=== PATIENT | female | born 1995 | race Caucasian/White ===

== ENCOUNTER 2024-08-08 10:00 | Outpatient (RCR) | payer OTHER, SELFPAY ==
[2024-08-08 11:44] LABS: Hematocrit 31.2 % (37.0-47.0); Hemoglobin 10.6 g/dL (12.0-15.0)
[2024-08-08 11:57] LABS: Glucose 1 Hour PP 50gm Dose 136 mg/dL
[2024-08-08 12:04] LABS: Transferrin 345 mg/dL (206-381)
[2024-08-08 12:35] LABS: HIV 1/2 Ab P24 Ag Result Negative (Negative); Iron 57 ug/dL (37-170)
[2024-08-08 12:44] LABS: Percent Iron Saturation 13 % (20-50)
[2024-08-08 13:09] LABS: Ferritin 7.12 ng/mL (6.24-137)
[2024-08-11] MEDS: RHO(D) IMMUNE GLOBULIN 300 MCG/2 ML SYRINGE IM (18:30)
== END 2024-11-06 23:59 | disposition home or self-care (01) ==
LOC: ANHLAB 10:00
PROVIDERS: PCP Internal Medicine; Visit Provider Obstetrics & Gynecology
DX: O36.0130 Maternal care for anti-D [Rh] antibodies, third trimester, not applicable or unspecified (principal); Z36.89 Encounter for other specified antenatal screening
CPT/HCPCS: 36415; 82728; 82947; 83540; 83550; 84466; 85014; 85018; 85461; 86703; 86850; 86900; 86901; 90384; 96372; G0432; J2790

== ENCOUNTER 2024-09-03 11:16 | Observation (INO) | payer OTHER, SELFPAY ==
[2024-09-03] VITALS (9 sets, daily range): BP systolic 110–123; BP diastolic 60–72; PULSE 76–100; BMI 31.4
--- OUTSIDE RECORDS SUMMARY | 2024-09-03 11:22 | XMS_ITS | Data Portability ---
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 Discussed plan. Not available 09/01/2024 17:07:52 Plan of Treatment Reminders Order Date Submit Date Provider Last Modified By Organization Details Last Modified Time Details Appointments OB ROUTINE 2024 02:45P M SONIA JOLLY MD Not available Not available Not available U/S OB GROWTH 2024 02:30P M ULTRASOUND Not available Not available Not available OB ROUTINE 2024 03:00P M January Lees CNM Not available Not available Not available Lab Rh immune globuli n screeni ng - Fax results to [phone] 2024 025 [facility] (Lab), [address] [place] [address], [phone], 08/15/2024 16:23:29 type + screen, serum - Fax results to 2024 025 [facility] (Lab), [address] [place] [address], [phone], 08/15/2024 16:25:36 HIV (1+2) Ab screen, serum - Fax results to 2024 025 [facility] (Lab), [address] [place] [address], [phone], 08/04/2024 15:41:34 hemoglo bin + hematoc rit, blood - Fax results to [facility]-[phone] 025 [facility] (Lab), [address] [place] [address], [phone], 08/04/2024 15:41:34 glucose toleran ce test, gestati onal, 1-hour - Fax results to [facility]-[phone] 025 [facility] (Lab), [address] [place] [address], [phone], 08/04/2024 15:41:34 iron + TIBC + ferriti n, serum [address] [facility] (Lab), [address] [facility], [place], [address], 08/19/2024 05:42:07 Referral None recorde d. Procedures None recorde d. Surgeries None recorde d. Imaging US, [facility] ic, follow- up 2024 [address], [address], [place], [address], 09/01/2024 20:56:22 US, [facility] ic, follow- up [address], [address], [place], [address], 08/05/2024 21:15:35 Medication Orders None recorde d. Patient TargetsNo targets recorded. Patient InstructionsNo instructions recorded. Reason for Referral None Reported. Results Created Date Observation Date Name Description Value Unit Range Abnormal Flag Note LastModifiedBy Organization Detail LastModifiedTime 08/19/19 25 08/18/2024 GTT - GESTA DIVINA L, 3 HOUR, ACOG glucose, fasting acog 64 mg/dL 70-94 low Not Available [facility] (Lab) [address] [facility], [place], [address], 08/19/2024 04:40:02 08/19/19 25 08/18/2024 GTT - GESTA DIVINA L, 3 HOUR, ACOG glucose, 1 hour acog 119 mg/dL 70-179 Not Available [facility] (Lab) [address] [facility], [place], [address], 08/19/2024 04:40:02 08/19/19 25 08/18/2024 GTT - GESTA DIVINA L, 3 HOUR, ACOG glucose, 2 hour acog 115 mg/dL 70-154 Not Available [facility] (Lab) [address] [place], [address], 08/19/2024 04:40:02 08/19/19 25 08/18/2024 GTT - GESTA DIVINA L, 3 HOUR, ACOG glucose, 3 hour acog 94 mg/dL 70-139 Not Available [facility] (Lab) [address] [place], [address], 08/19/2024 04:40:02 08/19/19 25 08/18/2024 DIMAS TIN / IRON / TRANS DIMAS N / TIBC iron 49 ug/dL 40-170 Not Available [facility] (Lab) [address] [place], [address], 08/19/2024 05:42:07 08/19/19 25 08/18/2024 DIMAS TIN / IRON / TRANS DIMAS N / TIBC transferrin 373 mg/dL 200-36 0 high Not Available [facility] (Lab) [address] [place], [address], 08/19/2024 05:42:07 08/19/19 25 08/18/2024 DIMAS TIN / IRON / TRANS DIMAS N / TIBC ferritin 9.9 NG/mL 8.0-25 2.0 Not Available [facility] (Lab) [address] [facility], [place], [address], 08/19/2024 05:42:07 08/19/19 25 08/18/2024 DIMAS TIN / IRON / TRANS DIMAS N / TIBC TIBC 522 ug/dL 250-45 0 high Not Available [facility] (Lab) [address] [facility], [place], [address], 08/19/2024 05:42:07 08/19/19 25 08/18/2024 DIMAS TIN / IRON / TRANS DIMAS N / TIBC iron saturation 9 % 20-55 low Not Available [facility] (Lab) [address] [place], [address], 08/19/2024 05:42:07 08/05/19 25 08/04/2024 US, obste tric, follo w-up No observ ation record ed. MARGA Tanja [address], [place], [address], 08/04/2024 20:59:31 08/05/19 25 08/04/2024 US, obste tric, follo w-up No observ ation record ed. [facility] [address], [place], [address], 08/04/2024 17:37:03 09/02/19 25 09/01/2024 US, obste tric, follo w-up No observ ation record ed. [facility] [address], [place], [address], 09/01/2024 17:51:14 09/02/19 25 09/01/2024 US, obste tric, follo w-up No observ ation record ed. [email or web address] Tan[address], [place], [address], 09/01/2024 21:28:20 Result Notes None recorded. Problems Name Problem SNOMED Code Status Onset Date Resolution Date Notes Provider Name and Address Organization Details Recorded Time 29157472 Active 2023 Thelma Segovia [facility], [facility] 4 16:16:40 Placenta circumval jai 2676601 Active growth SONIA JOLLY MD [address], [place], [address], [facility] 18:25:37 Marginal insertion of umbilical cord 91690585 Active q4 week growth SONIA JOLLY MD [address], [place], [address], [facility] 18:26:13 Blood group O Rh(D) negative 177287786 Active 08/08/2024 rhogam receicved Elvie Euceda [facility], [facility] 16:24:42 Problem Notes None recorded. Procedures Surgical History Date Name Laterality Status Provider Name and Address Organization Details Recorded Time 01/04/2023 Date of Last Pap Smear completed Thelma Segovia [facility] 04/11/2024 16:54:25 Imaging Results Imaging Date Name Status LastModified by Organiz ation Details LastModified Time 08/04/2024 US, obstetric, follow-up completed MARGA Mcgregore [address], [place], [address], 08/04/2024 20:59:31 08/04/2024 US, obstetric, follow-up completed perryelsa [place] [address], [place], [address], 08/04/2024 17:37:03 09/01/2024 US, obstetric, follow-up completed [facility] [address], [place], [address], 09/01/2024 17:51:14 09/01/2024 US, obstetric, follow-up active [email or web address] [address], [place], [address], 09/01/2024 21:28:20 Procedure Notes None recorded. Medical Equipment None Reported. Allergies No known drug allergies Medications Name Sig Start Date Stop Date Status Note LastModified by Organization Details LastModified Time rizatriptan 10 mg tablet 01/04 completed Not Available Not Available Not Available sumatriptan 50 mg tablet TAKE 1 TABLET BY MOUTH EVERY DAY NEEDED active Not Available Not Available No t Available ondansetron 8 mg disintegrat ing tablet DISSOLVE 1 TABLET ON THE TONGUE EVERY 6 TO 8 HOURS NEEDED active Not Available Not Available No t Available erythromyci n 5 mg/gram (0.5 %) eye ointment 01/04 completed Not Available Not Available Not Available methylpredn isolone 4 mg tablets in a dose pack 01/04 completed Not Available Not Available Not Available [facility] ODT 75 mg disintegrat ing tablet active Not Available Not Available N ot Available Vitals Date Recorded Body height Body mass index (BMI) Body weight Systolic blood pressure Diastolic blood pressure Provider Name and Address Organization Details Last Updated DateTime 08/04/2024 170.18 cm 32.1 kg/m2 03550.44 g 131 mm[Hg] 81 mm[Hg] KELLE Carey [facility] 5 15:28:41 Date Recorded Body height Body mass index (BMI) Body weight Systolic blood pressure Diastolic blood pressure Provider Name and Address Organization Details Last Updated DateTime 08/18/2024 170.18 cm 32.1 kg/m2 86108.44 g 109 mm[Hg] 77 mm[Hg] Thelma Segovia [facility] 5 11:07:55 Date Recorded Body weight Body mass index (BMI) Body height Systolic blood pressure Diastolic blood pressure Provider Name and Address Organization Details Last Updated DateTime 09/01/2024 45200.39 77 g 32.9 kg/m2 170.18 cm 120 mm[Hg] 76 mm[Hg] Elvie Euceda [facility] 16:56:02 Social History Question Answer Notes LastModified by Organizat ion Details LastModified Time Tobacco Smoking Status Never Smoker Roslyn Alen [facility] 01/04/2023 15:19:09 Do You Have An Advance Directive? No [email or web address] Information not available 04/11/2024 What Is Your Level Of Alcohol Consumption? Moderate [email or web address] Information not available 04/11/2024 How Many Years Have You Consumed Alcohol? 6 [email or web address] Information not available 04/11/2024 Are You Blind Or Do You Have Difficulty Seeing? No Information not available 01/04/2023 What Is Your Level Of Caffeine Consumption? None [email or web address] Information not available 04/11/2024 How Much Tobacco Do You Chew? None [email or web address] Information not available 04/11/2024 In The 14 Days Before Symptom Onset, Have You Had Close Contact With A Laboratory-confir med COVID-19 While That Case Was Ill? No Information not available 04/11/2024 In The 14 Days Before Symptom Onset, Have You Had Close Contact With A Person Who Is Under Investigation For COVID-19 While That Person Was Ill? No Information not available 04/11/2024 Have You Been To An Area Known To Be High Risk For COVID-19? No [email or web address] Information not available 04/11/2024 Are You Deaf Or Do You Have Serious Difficulty Hearing? No Information not available 01/04/2023 What Type Of Diet Are You Following? REGULAR [email or web address] Information not available 04/11/2024 What Is The Highest Grade Or Level Of School You Have Completed Or The Highest Degree You Have Received? [id number] [email or web address] Information not available 04/11/2024 What Is Your Occupation? [employer] [email or web address] Information not available 04/11/2024 Are There Any Guns Present In Your Home? Yes [email or web address] Information not available 04/11/2024 Do You Use Protection During Sex? No [email or web address] Information not available 04/11/2024 Do You Use Your Seat Belt Or Car Seat Routinely? Yes [email or web address] Information not available 04/11/2024 Do You Have Smoke And Carbon Monoxide Detectors In Your Home? Yes [email or web address] Information not available 04/11/2024 How Much Tobacco Do You Smoke? No [email or web address] Information not available 04/11/2024 Do You Feel Stressed (tense, Restless, Nervous, Or Anxious, Or Unable To Sleep At Night)? [id number] Information not available 04/11/2024 Do You Use Any Illicit Or Recreational Drugs? Yes [email or web address] Information not available 04/11/2024 Do You Use Sunscreen Routinely? No [email or web address] Information not available 04/11/2024 Have You Used IV Drugs? No [email or web address] Information not available 04/11/2024 Sex: Unknown Functional Status Question Answer Note LastModified by Organizat ion Details LastModified Time Do you have difficulty walking or climbing stairs? No Information not available 01/04/2023 Are you able to walk? [email or web address] Information not available 01/04/2023 Are you able to care for yourself? Yes Information not available 01/04/2023 Do you have difficulty dressing or bathing? No Information not available 01/04/2023 What is your exercise level? None [email or web address] Information not available 04/11/2024 Mental Status None recorded. Family History Relationship Description Onset Age of this Age Resolved Age Notes LastModified by Organization Details LastModified Time Maternal Grandmother Heart disease [email or web address] Not available 2023 16:49:56 Maternal Grandmother Essential hypertension [email or web address] Not available 0 09/01/2024 15:51:29 Mother Essential hypertension [email or web address] Not available 0 09/01/2024 15:51:29 Father Essential hypertension [email or web address] Not available 0 09/01/2024 15:51:29 Father Heart disease 50 [email or web address] Not available 04/0 08/2024 15:51:29 Father Heart disease [email or web address] Not available 2023 16:15:56 Maternal Grandfather Essential hypertension [email or web address] Not available 0 09/01/2024 15:51:29 Maternal Uncle Essential hypertension [email or web address] Not available 0 09/01/2024 15:51:29 Paternal Grandmother Heart disease 60 [email or web address] Not available 08/2024 15:51:30 Paternal Grandmother Heart disease [email or web address] Not available 2023 16:15:56 Paternal Grandfather Heart disease 70 [email or web address] Not available 08/2024 15:51:30 Paternal Grandfather Heart disease [email or web address] Not available 2023 16:15:56 Medical History Condition Response Allergies (Food, seasonal, environmental ) N Other N Breast Cancer N Drug/Latex Allergies/Reactions N Blood Transfusion N Dermatologic Disorders N Lung Disease N Defects or Inherited Disease N Breast Problem N Gestational Diabetes N Hematologic disorders N Anesthesia Complications N History of STI N Deep Vein Thrombosis N Polycystic ovary syndrome N Anxiety Disorder N Autoimmune disease N Arthritis N Infertility N Polyps N Acid Reflux (GERD) N History of abnormal pap N Cancer N Stroke N Varicosities N Neurologic/Epilepsy N Endometriosis N High Cholesterol N Headaches Y Fibromyalgia N Kidney Disease N Heart Problems N Kidney or Bladder Problems N Thyroid Problems N GI Problems N Eating Disorder N Anemia N Art (IVF or FET) N Psychiatric Illness N Ovarian Cancer N Diabetes N Pulmonary (TB, Asthma) N Hepatitis/Liver Disease N No Past Medical History N Eczema N Urinary Tract Infection N Abuse/Domestic Violence N Asthma N Trauma/Violence N Depression/ depression N Heart Disease N Pre-Eclampsia N Hypertension N Osteoporosis N Thrombophilias N Gynecological History Statement/Question Response Flow Moderate Date of LMP 02/02/2024 On BCP's at Conception? N N Was last menstrual period normal Y STIs/STDs N HPV Vaccine Y Duration of Flow (days) 5 Current Control Method Are cycles usually normal Y Frequency of Cycle (Q days) 28 Sexually Active? Y None Menses Monthly Y Age of first menstrual cycle 15 Date of Last Pap Smear 01/04/2023 Sexual Problems? N LMP Definite N Obstetrics History GPAL:G 1 P 0 0 0 0 Past Encounters Encounter ID Performer Location Encounter Start Date Encounter Closed Date Diagnosis/Indication Diagnosis SNOMED-CT Code Diagnosis ICD10 Code Diagnosis Note [id number] LUCILA Ordonez [place] [address] [address] 01/04/2023 14:48:42 01/05/2023 10:25:35 Gynecologic examination 13201382 Z01.419 Take Calcium with Vitamin D 1200mg daily if not receiving in daily diet. It is strongly advised to have an annual flu shot and up can obtain at most pharmacies . If you have not had a TDap shot in the last 10 years you should obtain one as well. Discussed with patient & provided with informatio n regarding Gardisil vaccine to prevent the 4 strains for HPV that cause cervical cancer if under age 26. Encourage safe sexual practices, to use condoms and limit partners if not already in a monogamous relationsh ip. Do monthly self breast exams. Have mammogram yearly or every other year depending on family history. BRCA testing is now available for patients with strong genetic history of female cancer. If interested contact the office. Engage in daily exercise of low impact aerobic exercise 45-60 minutes 4-5 times weekly. Avoid tobacco and illicit drugs as well as using moderation with alcohol intake less than 1-2 8 oz beverages daily. This lifestyle behavior pattern will lead to less health conditions and longer life span. If BMI greater than 25 weight watchers or dietary consult advised. Patient received above instructio ns, and questions have been answered. If you have any questions please call or respond to this email. Patient was made aware of the patient portal and may obtain a paper copy of today's plan if desired. WWEBC - condoms, happy with this methodBC declinedpr imary pap collectedS TI testing declinedfa m hx reviewedUT D with PCPRTC in 1 year or sooner if needed [id number] Tona Estrella [place] [address] [address] 04/11/2024 16:13:21 04/11/2024 16:41:40 Uterine size for dates discrepancy 694895167 O26.841 Z3A.09 [id number] SONIA JOLLY MD [place] [address] [address] 04/11/2024 16:13:39 04/13/2024 09:31:57 Nausea and vomiting 87926274 R11.2 Migraine 88318127 G43.90 9 - previously on Nurtec, stopped with - discussed tylenol PRN then sumatripta n if not improved test positive 826776506 Z32.01 1. Exam today within normal limits.2. Ultrasound today confirms GA and viability. EDC . GC/Clamydi a testing done: will f/u as indicated. 4. ACOG guidelines and plan of care for reviewed with patient. All questions answered.5 . Return to office at 12 weeks for new OB visit6. Will need new OB labs at next visit.7. 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 Marginal i nsertion of umbilical cord 93565791 O43.129 Gestation period, 21 weeks 58513098 Z3A.21 [id number] [facility] [address],[place] [address] 07/04/2024 16:25:20 07/04/2024 17:53:25 screening for malformation 242094115 Z36.3 Z3A.21 [id number] SONIA JOLLY MD [place] [address],[place] [address] 08/04/2024 15:20:25 08/04/2024 16:07:29 screening 177832875 Z36.89 O36.0130 Marginal i nsertion of umbilical cord 62552477 O43.129 - continue q week growth US Placenta circumvallata 1893867 O43.119 Gestation period, 26 weeks 39146132 Z3A.26 [id number] [facility] [address],[place] [address] 08/04/2024 15:20:05 08/07/2024 09:44:21 screening 429563360 Z36.2 Z3A.26 [id number] SONIA JOLLY MD [place] [address],[place] [address] 08/18/2024 09:34:11 08/18/2024 11:48:25 RhD negative 822403397 Z01.83 Impaired g lucose tolerance in 542849613 O99.810 Marginal i nsertion of umbilical cord 62231824 O43.129 - continue q week growth Gestation period, 28 weeks 02612699 Z3A.28 [id number] [facility] [address],[place] [address] 09/01/2024 15:50:59 09/01/2024 16:53:13 Marginal insertion of umbilical cord 14813038 O43.123 Z3A.30 [id number] January Lees CNM [place] [address],[place] [address] 09/01/2024 15:51:21 09/01/2024 17:09:51 Gestation period, 30 weeks 86991020 Z3A.30 Health Concerns Section Related Observation LastModified by Organization Detai ls LastModified Time None Recorded Concern Status LastModified by Organization Details LastModified Time None Recorded Advance Directives Directive N: Payers Encounter Date Sequence Insurance Name Policy Number Policy Rosas Covered Member ID Rosas Member ID Guarantor Name 08/04/2024 1 [facility] [id number] January Cook [id number] 1 January Cook 08/04/2024 1 [facility] [id number] January Cook [id number] 1 January Cook 08/18/2024 1 [facility] [id number] January Cook [id number] 1 January Cook 09/01/2024 1 [facility] [id number] January Cook [id number] 1 January Cook 09/01/2024 1 [facility] [id number] January Cook [id number] 1 January Cook OBGyn Episode Ob Episode Information Episode Created Date Number of Fetuses Patient Bloodtype Patient rh Status Prepregnancy Weight lbs Domestic Partner Domestic Partner Phone Father Name Elevator Attendant Status 05/09/20 24 1 O Negative Jake Carter OPEN Fetus Data First Name Last Name Admitted to NICU Weight (g) Sex Living Outcome Pediatric Complications Fetus ID Race Codes Race Delivery Type [id number] Problems Problem Notes Problem Name Start Date End Date Resolution Snomed Code Not e Placenta circumvallata 5166461 growth US Marginal insertion of umbilical cord 12006695 q4 week growt h US Blood group O Rh(D) negative 113101791 08/08/2024 rhoga m receicved Joesph Calculation Initial Joesph Date Initial Exam Date Initial Exam Provider Initial Ultrasound Date Last Menstrual Period Date Ultra Sound Weeks Gestation 05/09/2024 04/11/2024 02/02/2024 9 Eighteen To Twenty Week Joesph Update Ultra Sound Date Fundal Height At Umbil Quickening Date Ultra Sound Latest Weeks Gestation Final Joesph Confirmed By Final Joesph Confirmed Date Final Joesph Date Ultra Sound Latest Days Gestation 0 11/09/19 25 0 Pre-roxanne Flowsheet Flowsheet Date 05/09/2024 Dean Score Blood Edema Fundus Height Fundus Units Glucose Ketones Leukocytes Nitrite Labor Signs Protein Cervic Dilation Cervic Effacement Cervic Station Type Weight in lbs Pre/Post Dialysis Refused BP Diastolic BP Location Tested BP Systolic BP Type Fetus Heart Rate Present Fetus Movement Comments Flowsheet Date 05/09/2024 Dean Score Blood Edema Fundus Height Fundus Units Glucose Ketones Leukocytes Nitrite Labor Signs Protein Cervic Dilation Cervic Effacement Cervic Station Type Weight in lbs Pre/Post Dialysis Refused Weight 199.345840183914 BP Diastolic BP Location Tested BP Systolic BP Type 75 L arm 117 sitting Fetus Heart Rate Present A 154 Fetus Movement Comments Patient presents to [facility] care. Headaches improved, did not tolerate sumatriptan well, would like to try other medication for PRN migraines. otherwise uncomplicated. No nausea or cramping. NT/NB wnl today, desires NIPT. Will draw today with new OB labs. RTC 4 weeks for routine care. Flowsheet Date 06/09/2024 Dean Score Blood Edema Fundus Height Fundus Units Glucose Ketones Leukocytes Nitrite Labor Signs Protein Cervic Dilation Cervic Effacement Cervic Station Type Weight in lbs Pre/Post Dialysis Refused 197.175311943179 BP Diastolic BP Location Tested BP Systolic BP Type 76 L arm 112 sitting Fetus Heart Rate Present A 150 Fetus Movement A Yes Comments Doing well, starting to feel movement. Had an episode of bloody stool and constipation, will start stool softener. Discussed anatomy US for next visit. LR female NIPT! All other OB labs wnl. RTC 2-4 weeks for anatomy US. Flowsheet Date 07/04/2024 Dean Score Blood Edema Fundus Height Fundus Units Glucose Ketones Leukocytes Nitrite Labor Signs Protein Cervic Dilation Cervic Effacement Cervic Station Type Weight in lbs Pre/Post Dialysis Refused BP Diastolic BP Location Tested BP Systolic BP Type Fetus Heart Rate Present Fetus Movement Comments Flowsheet Date 07/04/2024 Dean Score Blood Edema Fundus Height Fundus Units Glucose Ketones Leukocytes Nitrite Labor Signs Protein Cervic Dilation Cervic Effacement Cervic Station neg none Type Weight in lbs Pre/Post Dialysis Refused Weight 201.582496821529 BP Diastolic BP Location Tested BP Systolic BP Type 74 L arm 117 sitting Fetus Heart Rate Present A 149 Fetus Movement A Yes Comments Patient c/o slight nausea, l ight cramping. Good movement. No bleeding. Anatomy US today, incomplete; need spine, RA, and aortic arch. Discussed findings of circumvallate placenta and marginal cord insertion; repeat growth US q4 weeks. EFW 29%. RTC 4 weeks. Flowsheet Date 08/04/2024 Dean Score Blood Edema Fundus Height Fundus Units Glucose Ketones Leukocytes Nitrite Labor Signs Protein Cervic Dilation Cervic Effacement Cervic Station Type Weight in lbs Pre/Post Dialysis Refused BP Diastolic BP Location Tested BP Systolic BP Type Fetus Heart Rate Present Fetus Movement Comments Flowsheet Date 08/04/2024 Dean Score Blood Edema Fundus Height Fundus Units Glucose Ketones Leukocytes Nitrite Labor Signs Protein Cervic Dilation Cervic Effacement Cervic Station neg trace neg Type Weight in lbs Pre/Post Dialysis Refused Weight [id number] BP Diastolic BP Location Tested BP Systolic BP Type 81 L arm 131 sitting Fetus Heart Rate Present Fetus Movement A Yes Comments Good movement. No cram ping or bleeding. Had hypoglycemic event after exercising. No recurrent episodes. Orders given for GCT and labs today with Rhogam orders. Growth US to follow. RTC 2 weeks. Flowsheet Date 08/18/2024 Dean Score Blood Edema Fundus Height Fundus Units Glucose Ketones Leukocytes Nitrite Labor Signs Protein Cervic Dilation Cervic Effacement Cervic Station neg none Type Weight in lbs Pre/Post Dialysis Refused Weight 205.626868196430 BP Diastolic BP Location Tested BP Systolic BP Type 77 L arm 109 sitting Fetus Heart Rate Present A 140 Fetus Movement A Yes Comments Good movement. No cram ping or bleeding. 3h GTT today. Discussed anemia, has started Fe supplement. Received rhogam. EFW 33% at last check, will repeat next visit for MCI and fibroid. RTC 2 weeks. Discussed tdap. Flowsheet Date 09/01/2024 Dean Score Blood Edema Fundus Height Fundus Units Glucose Ketones Leukocytes Nitrite Labor Signs Protein Cervic Dilation Cervic Effacement Cervic Station Type Weight in lbs Pre/Post Dialysis Refused BP Diastolic BP Location Tested BP Systolic BP Type Fetus Heart Rate Present Fetus Movement Comments Flowsheet Date 09/01/2024 Dean Score Blood Edema Fundus Height Fundus Units Glucose Ketones Leukocytes Nitrite Labor Signs Protein Cervic Dilation Cervic Effacement Cervic Station neg none Type Weight in lbs Pre/Post Dialysis Refused 210.280033882680 BP Diastolic BP Location Tested BP Systolic BP Type 76 120 Fetus Heart Rate Present Fetus Movement A Yes Comments Patient states that is havin g some nausea and vomiting. Reviewed precautions and education, +FM, has a cold, tylenol cold ok, efw 58% Menstrual History Last Menstrual Date Menses Monthly On Bcp Conception Prior Menses Frequency Hcg Plus Date Menarche Onset Age 0902/02/2024 true Delivery Information Delivery Date Delivery Type Labor Anesthesia Weeks Gestation Incision Type Labor Labor Length Hrs Delivered By Post Complications Tubal Sterilization Discharge Date Comments Discharge Information Feeding Method Contraceptive Method Maternal HG B and HCT Levels
--- OUTSIDE RECORDS SUMMARY | 2024-09-03 11:22 | XMS_ITS | Encounter Summary ---
Author Organization [facility] Address [address] [place] [id number] Care Team Providers Care Numerical Analysis Group Manager Name Role Phone Reji Castañeda MD Primary Care Provider [phone] Encounter Details Date Type Department Care Team (Late st Contact Info) Description 03/06/2022 Accountablet Message Enc [facility] Medical [facility] Family & Internal Medicine [id number] [place] [address] Reji Castañeda MD [facility] [place] [address] CBD migraine Treatment Social History Tobacco Use Types Packs/Day Years Used Date Smoking Tobacco: Never Smokeless Tobacco: Never Alcohol Use Standard Drinks/Week Comments Yes 0 (1 standard drink = 0.6 oz pur e alcohol) 2 drinks every few days AUDIT-C Answer Date Recorded Frequency of Alcohol Consumption Monthly or less 02/20/2019 Average Number of Drinks 1 or 2 019 Frequency of Binge Drinking Never 01/30 PHQ-2 Answer Date Recorded PHQ-2 Score - If the patient scores above 3, please move on to questions 3-9 0 12/22/2021 Comments No Sex and Gender Information Value Date Recorded Sex Assigned at Female 02/20/2019 3:48 PM CDT Legal Sex Female 7:07 PM CDT Gender Identity Female 02/20/2019 3:48 PM CDT Sexual Orientation Straight 02/20/2019 3: 48 PM CDT documented as of this encounter Plan of Treatment Not on file documented as of this encounter Visit Diagnoses Not on filedocumented in this encounter Additional Health Concerns Assessment Noted Time PHQ-9 Depression Total Score: 0 02/14/20 21 10:08 AM CDT documented as of this encounter Care Teams Numerical Analysis Group Manager Relationship Specialty Start Date End Date Reji Castañeda MD [address] [place] [address] PCP - General 10/31/15 documented as of this encounter
--- OUTSIDE RECORDS SUMMARY | 2024-09-03 11:22 | XMS_ITS | Encounter Summary ---
Author Organization [facility] Address [address] [place] [address] Care Team Providers Care Road Design Draftsperson Name Role Phone Reji Castañeda MD Primary Care Provider [phone] Encounter Details Date Type Department Care Team (Late st Contact Info) Description 04/19/2023 [place] Message Enc [facility] Medical Group Family & Internal Medicine [facility] [address] [place] [address] Reji Castañeda MD [address] [place] [address] [facility] Social History Tobacco Use Types Packs/Day Years [...] Drinking Never 01/30 PHQ-2 Answer Date Recorded Patient Health Questionnaire-2 Score 0 08/11/2022 Comments No Sex and Gender Information Value Date Recorded Sex Assigned at Female 02/20/2019 3:48 PM CDT Legal Sex Female 7:07 PM CDT Gender Identity Female 02/20/2019 3:48 PM CDT Sexual Orientation Straight 02/20/2019 3: 48 PM CDT documented as of this encounter Progress Notes * Reji Castañeda MD - 04/20/2023 5:05 PM CST Okay for refill of imitrex [place] documented in this encounter Plan of Treatment Not on file documented as of this encounter Visit Diagnoses Not on filedocumented in this encounter Additional Health Concerns Assessment Noted Time PHQ-9 Depression Total Score: 0 02/14/20 10:08 AM CDT documented as of this encounter Care Teams Road Design Draftsperson Relationship Specialty Start Date End Date Reji Castañeda MD [address] [place] [address] PCP - General 10/31/15 documented as of this encounter
--- OUTSIDE RECORDS SUMMARY | 2024-09-03 11:22 | XMS_ITS | Clinical Summary ---
Author Organization [facility] Address [address] [facility] [place] [address] Care Team Providers Care Certified Control Systems Technician Name Role Phone Unavailable Primary Care Provider Unavailabl e Source Comments [facility],non-owned Affiliates and Associated Physician Practices is amultiple site organization consisting of ambulatory clinics and hospital sitesin [place], [place], [place] and [place]. This disclosure is being madepursuant to the Care Everywhere program and may not contain all information available regarding this patient. Last updated 18.[facility] [employer] Allergies No known active allergies Medications * Be aware that medications may not be up to date on this document. Alwaysverify current medications with the patient. Medication Sig Dispensed Refills Start Date End Date Status minocycline (MINOCIN) 100 MG capsuleIndications:Acne Take 1 Cap by mouth 2 times daily for 30 days. 60 Cap 1 01/01/2011 Active Active Problems Problem Noted Date Diagnosed Date Acne 06/04/2011 Immunizations Name Administration Dates Next Due DTaP VACCINE IM (6wk-6yrs) 09/26/2001,,1996, 7,1996 HEP A PEDS 2 DOSE 10/20/2005,09/30/2004 HEP B VACCINE, PED/ADOL 03/30/1997,1996, HIB BOOSTER 09/14/1997, 7,1996, 7 Human Papilloma Virus Vaccine 01/02/2008, 008,07/01/2007 MENINGOCOCAL MENINGITIS 07/01/2007 MENINGOCOCCAL ACWY (MCV4P) VAC IM 09/23/2012 MMR 09/26/2001,07/13/1997 POLIO IPV 09/26/2001 POLIO OPV 1996,1996,1996 PPD 09/26/2001 TDAP (7yrs+) 10/26/2006 VARICELLA 10/26/2006,09/14/1997 Family History Relation Name Status Comments Father Alive Mother Alive Social History Tobacco Use Types Packs/Day Years Used Date Smoking Tobacco: Never Smokeless Tobacco: Never Sex and Gender Information Value Date Recorded Sex Assigned at Not on file Gender Identity Not on file Sexual Orientation Not on file Last Filed Vital Signs Vital Sign Reading Time Taken Comments Blood Pressure 118/68 07/04/2019 6:33 PM CAMERA CONTROL OPERATOR Pulse 85 07/04/2019 6:33 PM CAMERA CONTROL OPERATOR Temperature 36.8 C (98.2 F) 07/04/2019 6:33 PM CAMERA CONTROL OPERATOR Respiratory Rate 14 07/04/2019 6:33 PM CAMERA CONTROL OPERATOR Oxygen Saturation 98% 07/04/2019 6:33 PM CAMERA CONTROL OPERATOR Inhaled Oxygen Concentration - - Weight 81.6 kg (180 lb) 07/04/2019 6:33 PM CAMERA CONTROL OPERATOR Height 170.2 cm (5' 7 ) 07/04/2019 6:33 PM CAMERA CONTROL OPERATOR Body Mass Index 28.19 07/04/2019 6:33 PM CAMERA CONTROL OPERATOR Plan of Treatment Health Maintenance Due Date Last Done Comments PAP SMEAR 1996 HIV SCREENING 2011 HEPATITIS C SCREENING 06/02/2014 DTAP/TDAP/TD VACCINES (7 - Td or Tdap) 10/26/2016 10/26/2006, 09/26/2001, 09/14/1997, Additional history exists COVID-19 VACCINE ( season) 2024 DEPRESSION SCREENING 05/31/2024 INFLUENZA VACCINE (Season Ended) 2025 03/12/2016 ZOSTER VACCINE (1 of 2) 2046 HEPATITIS B VACCINE Completed 03/30/1997, 1996, 1996 HIB VACCINE Completed 09/14/1997, 01/1997, 1996, Additional history exists HPV VACCINE Completed 01/02/2008, 08/2007, 07/01/2007 MENINGOCOCCAL GROUPS A/C/Y/W VACCINE Completed 09/23/2012, 07/01/2007 MENINGOCOCCAL (Group B) VACCINE SHARED DECISION-MAKING Aged Out No longer eligible based on patient's age to complete this topic PNEUMOCOCCAL VACCINE Aged Out No long er eligible based on patient's age to complete this topic JANUARY COOK Personal/Family 1995 [address] [place] [address]
--- OUTSIDE RECORDS SUMMARY | 2024-09-03 11:22 | XMS_ITS | Clinical Summary ---
Author Organization [facility] Address [address] [place] [address] Care Team Providers Care Communications Department Chairperson Name Role Phone Reji Castañeda MD Primary Care Provider [phone] Allergies No known active allergies Medications metroNIDAZOLE (METROGEL) 1 % gelIndications:Ros acea Apply topically daily. 55 g 3 3 Active SUMAtriptan (IMITREX) 50 MG tabletIndications: Migraine with aura and without status migrainosus, not intractable Take 1 tablet (50 mg total) by mouth 2 (two) times daily as needed for Migraine. Max of 4 tablets (200 mg) in 24 hours. 10 tablet 1 4 Active rimegepant (NURTEC) 75 MG disintegrating tabletIndications: Migraine without aura and without status migrainosus, not intractable Take 1 tablet (75 mg total) by mouth daily as needed for Migraine. Max of 1 tablet (75 mg) in 24 hours. 30 tablet 3 4 Active Active Problems Problem Noted Date Diagnosed Date Migraine 07/27/2019 Arachnoid cyst 03/31/2016 Mass of left side of neck 03/12/2016 Low hemoglobin 10/31/2015 Encounters Date Type Department Care Team Description 08/08/2024 Scan [facility] Scanned, [facility] Lab (SCAN) from Last 3 Months Immunizations Name Administration Dates Next Due Dtap (Generic) 09/26/2001, 8,1996,1996 ,1996 HPV 01/02/2008,09/02/2007,07/01/2007 Hepatitis A Vaccine - 2 Dose 10/20/2005,10/01/19 05 Hepatitis B Pediatric 03/30/1997,1996,06/01 Hib Vaccine, Prp-D 09/14/1997,1996, 997,1996 Influenza Adult (Generic) 03/12/2016 MMR (Generic) 09/26/2001,07/13/1997 Menactra 09/23/2012 Meningococcal Vac A,C,Y,W-135 Sc 09/23/2012 Meningococcal(Mcv 4)Aka Menactra 07/01/2007 Opv 1996,1996,1996 Polio Ipv (Generic) 09/26/2001 Tdap (Adacel) 02/13/2021 Tdap (Generic) 10/26/2006 Varicella Vaccine 10/26/2006,09/14/1997 Family History Medical History Relation Comments Hypertension Father Lung Disease Maternal Grandfather Cancer Maternal Grandmother skin cancer Hypertension Mother Cancer Paternal Grandmother Heart Disease Paternal Grandmother Relation Status Comments Father Maternal Grandfather Maternal Grandmother Mother Paternal Grandmother Social History Tobacco Use Types Packs/Day Years Used Date Smoking Tobacco: Never Smokeless Tobacco: Never Tobacco Cessation:Counseling Given: Not Answered Alcohol Use Standard Drinks/Week Comments Yes 0 [...] Orientation Straight 02/20/2019 3: 48 PM CDT Last Filed Vital Signs Vital Sign Reading Time Taken Comments Blood Pressure 118/72 08/11/2022 3:35 PM CDT Pulse 87 08/11/2022 3:35 PM CDT Temperature 36.4 C (97.5 F) 08/11/2022 3:35 PM CDT Respiratory Rate 16 08/11/2022 3:35 PM CDT Oxygen Saturation 99% 08/11/2022 3:35 PM CDT Inhaled Oxygen Concentration - - Weight 88.7 kg (195 lb 9.6 oz) 08/11/2022 3:35 P M CDT Height 171.5 cm (5' 7.5 ) 08/11/2022 3:35 PM CDT Body Mass Index 30.18 08/11/2022 3:35 PM CDT Plan of Treatment Health Maintenance Due Date Last Done Comments Hepatitis C 2014 Annual Physical 08/12/2023 08/11/2022, 02/13/2021 COVID-19 Vaccine ( season) 2024 08/09/2020, 07/19/2020 PHQ-2 (Physician [place]) 05/31/2024 Cervical Cancer Screening Pap Smear (Age 21 to 29) Every 3 Years 01/04/2026 01/04/2023 Cervical Cancer Screening 01/04/2026 DTaP, Tdap and Td Vaccines (8 - Td or Tdap) 02/13/2031 02/13/2021, 10/26/2006, 09/26/2001, Additional history exists Hepatitis B Vaccines Completed 03/30/1997, 1996, 1996 HPV Vaccines Completed 01/02/2008, 08/2007, 07/01/2007 Meningococcal Vaccine Aged Out 09/23/2012, 013 No longer eligible based on patient's age to complete this topic Meningococcal B Vaccine Aged Out No l onger eligible based on patient's age to complete this topic Pneumococcal Vaccine: Pediatrics (0 to 5 Years) and At-Risk Patients (6 to 64 Years) Aged Out No longer eligible based on patient's age to complete this topic RSV Immunizations Under 20 Months Aged Out No longer eligible based on patient's age to complete this topic Procedures Procedure Name Priority Date/Time Associated Diagnosis Comments OUTSIDE LAB (SCAN ORDER) 08/08/2024 OUTSIDE LAB (SCAN ORDER) 08/08/2024 OUTSIDE CYTOPATH CERV/VAG IN TERPRET (PAP) 01/04/2023 from Last 3 Months or Most Recently Relevant to Health Maintenance Results * OUTSIDE LAB (SCAN ORDER) (08/08/2024) Only the most recent of2 resultswithin the time period is included. 08/08/2024 [facility] Scanned SCANNING Final Resu lt * PAP SMEAR WITH HPV (01/04/2023) 01/04/2023 [facility] Scanned SCANNING Final Resu lt from Last 3 Months or Most Recently Relevant to Health Maintenance Insurance CIG Care Teams Communications Department Chairperson Relationship Specialty Start Date End Date Reji Castañeda MD [address] [place] [address] PCP - General 10/31/15
[2024-09-03 12:31] LABS: Add Urine Microscopic? YES; Appearance Urine Clear (Clear); Bacteria Urine None Seen /hpf; Bilirubin Urine Negative (Negative); Blood Urine Negative (Negative); Color Urine Yellow (Yellow); Glucose Urine UA Trace mg/dL (Negative); Ketones Urine Negative (Negative); Leukocyte Esterase Ur Trace LEU/UL (Negative); Nitrate Urine Negative (Negative); Non Pathogenic Casts 0-2; Protein Urine Negative (Negative); RBC Urine 0-2 /hpf (0-2); Specific Grav Ur 1.004 (1.001-1.035); Squamous Epithelial Cell Urine None Seen /hpf (Few); Urobilinogen Urine 0.2 mg/dL (<2.0); WBC Urine 0-5 /hpf (0-3)
[2024-09-03] MEDS: TERBUTALINE SULFATE 1 MG/ML VIAL 0.25 MG SUB-Q (12:59)
--- NOTE | 2024-09-27 09:28 | PM.OBTRLD ---
OB - Triage/Final Diagnosis Visit Information Comments/Additional reasons for admission: I have assessed the risk for this patient, January Cook, and determined that she would benefit from observation care. Evaluation Laboratory results: Laboratory Tests 09/03/24 12:20 Urine Color Yellow Urine Appearance Clear Urine pH 7.0 Ur Specific [place] 1.004 Urine Protein Negative Urine Glucose (UA) Trace H Urine Ketones Negative Ur Blood (Man) Negative Urine Nitrate Negative Urine Bilirubin Negative Urine Urobilinogen 0.2 Ur Leukocyte Esterase Trace H Urine RBC 0-2 Urine WBC 0-5 Ur Squamous Epith Cells None seen Urine Bacteria None seen Urine Casts 0-2 Final Diagnosis (1) Abdominal pain: Code(s): R10.9 - Unspecified abdominal pain Status: Acute
== END 2024-09-03 13:42 | disposition home or self-care (01) ==
PROVIDERS: Obstetrics & Gynecology; Admitting Provider Obstetrics & Gynecology; PCP Internal Medicine; Visit Provider Obstetrics & Gynecology
DX: O26.893 Other specified pregnancy related conditions, third trimester (principal); R10.9 Unspecified abdominal pain; Z3A.30 30 weeks gestation of pregnancy
CPT/HCPCS: 81001; 87086; 96372; G0378; G0379; J3105

== ENCOUNTER 2024-10-27 15:25 | Inpatient (IN) | payer OTHER, SELFPAY ==
[2024-10-27] VITALS (13 sets, daily range): BP systolic 119–142; BP diastolic 51–95; PULSE 51–86; TEMP 36.7–36.9; O2SAT 87–99; BMI 34.5
--- OUTSIDE RECORDS SUMMARY | 2024-10-27 15:35 | XMS_ITS | Data Portability ---
Author Organization [facility] [place] Address [address] [place] [address] Care Team Providers Care Scientific Affairs Manager Name Role Phone BETZY WU Primary Care Provider Assessment Encounter Date Assessment Date Assessment LastModified by Organization Details LastModified Time 10/10/2024 10/10/2024 Patient is __35_weeks . Discussed plan. Not available 10/10/2024 11:32:54 10/17/2024 10/17/2024 Patient is __36_weeks . Discussed plan. [email or web address] Not available 10/17/2024 10:29:15 10/27/2024 10/27/2024 Patient is _38__weeks . Discussed plan. Not available 10/27/2024 16:19:58 Plan of Treatment Reminders Order Date Submit Date Provider Last Modified By Organization Details Last Modified Time Details Appointments U/S OB GROWTH 2024 02:30P M ULTRASOUND Not available Not available Not available OB ROUTINE 2024 03:00P M January Lees CNM Not available Not available Not available Lab None recorde d. Referral None recorde d. Procedures None recorde d. Surgeries None recorde d. Imaging None recorde d. Medication Orders None recorde d. Patient TargetsNo targets recorded. Patient InstructionsNo instructions recorded. Reason for Referral None Reported. Results Created Date Observation Date Name Description Value Unit Range Abnormal Flag Note LastModifiedBy Organization Detail LastModifiedTime 10/11/19 25 10/10/2024 CULTU RE: GROUP B STREP SCREE N, REFLE X SUSCE PTIBI LITY result report SEE RESULT S BELOW Test: Cultu re: Group B Strep , Refle x Susce ptibi lity ([facility]/ [facility] ) Speci men Sourc e: Vagin a/Rec hailee Speci men Type: Vagin al/Re ctal Speci men Date: 2024 1107 Resul t Date: 2024 1359 Resul t Statu s: Final resul t Abnor mal: No Resul ting Lab: [facility] [address] [facility] [address] Tel: CULTU RE ----- ----- ----- --- No Group B strep isola rachel at 2 days (josette ctive broth enhan cemen t) Not Available [facility] (Lab) [address] [facility], [place], [address], 10/13/2024 15:02:57 10/18/19 25 10/17/2024 CBC W/DIF F WBC 8.9 10'3/ uL 3.5-10 .5 Not Available [facility] (Lab) [address] [facility], [place], [address], 10/18/2024 07:12:38 10/18/19 25 10/17/2024 CBC W/DIF F RBC 3.32 10'6/ uL (based on docume nted legal sex) 3.80-5 .20 low Not Available [facility] (Lab) [address] [place], [address], 10/18/2024 07:12:38 10/18/19 25 10/17/2024 CBC W/DIF F HGB 9.4 g/dL (based on docume nted legal sex) 11.6-1 5.4 low Not Available [facility] (Lab) [address] [place], [address], 10/18/2024 07:12:38 10/18/19 25 10/17/2024 CBC W/DIF F HCT 29.9 % (based on docume nted legal sex) 34.0-4 5.0 low Not Available [facility] (Lab) [address] [facility], [place], [address], 10/18/2024 07:12:38 10/18/19 25 10/17/2024 CBC W/DIF F MCV 90.1 fL 80.0-9 9.0 Not Available [facility] (Lab) [address] [facility], [place], [address], 10/18/2024 07:12:38 10/18/19 25 10/17/2024 CBC W/DIF F MCH 28.3 pg 27.0-3 4.0 Not Available [facility] (Lab) [address] [facility], [place], [address], 10/18/2024 07:12:38 10/18/19 25 10/17/2024 CBC W/DIF F MCHC 31.4 g/dL 32.0-3 5.5 low Not Available [facility] (Lab) [address] [facility], [place], [address], 10/18/2024 07:12:38 10/18/19 25 10/17/2024 CBC W/DIF F RDW 14.4 % 11.0-1 5.0 Not Available [facility] (Lab) [address] [facility], [place], [address], 10/18/2024 07:12:38 10/18/19 25 10/17/2024 CBC W/DIF F plt 193 10'3/ uL 150-40 0 Not Available [facility] (Lab) [address] [facility], [place], [address], 10/18/2024 07:12:38 10/18/19 25 10/17/2024 CBC W/DIF F MPV 12.4 fL 8.8-12 .1 high Not Available [facility] (Lab) [address] [facility], [place], [address], 10/18/2024 07:12:38 10/18/19 10/17/2024 CBC W/DIF F NRBC's 0.0 % 0.0 Not Available [facility] (Lab) [address] [facility], [place], [address], 10/18/2024 07:12:38 10/18/19 25 10/17/2024 CBC W/DIF F absolute NRBCs 0.0 10'3/ uL no refere nce range establ ished Not Available [facility] (Lab) [address] [facility], [place], [address], 10/18/2024 07:12:38 10/18/19 25 10/17/2024 CBC W/DIF F neutrophils 66.4 % 34.0-7 3.0 Not Available [facility] (Lab) [address] [facility], [place], [address], 10/18/2024 07:12:38 10/18/19 25 10/17/2024 CBC W/DIF F lymphocytes 21.5 % 15.0-5 0.0 Not Available [facility] (Lab) [address] [facility], [place], [address], 10/18/2024 07:12:38 10/18/19 25 10/17/2024 CBC W/DIF F monocytes 10.9 % 1.0-15 .0 Not Available [facility] (Lab) [address] [place], [address], 10/18/2024 07:12:38 10/18/19 25 10/17/2024 CBC W/DIF F eosinophils 0.8 % 0.0-8. 0 Not Available [facility] (Lab) [address] [place], [address], 10/18/2024 07:12:38 10/18/19 25 10/17/2024 CBC W/DIF F basophils 0.2 % 0.0-2. 0 Not Available [facility] (Lab) [address] [place], [address], 10/18/2024 07:12:38 10/18/19 25 10/17/2024 CBC W/DIF F immature granulocytes 0.2 % no define d refere nce range Immat ure Granu locyt es (IG) repre sents autom ated enume ratio n of Metam yeloc ytes, Myelo cytes and Promy elocy jack when IG is < 5%. Blast s are not inclu ded in IG and repor rachel separ ately if prese nt. Not Available [facility] (Lab) [address] [facility], [place], [address], 10/18/2024 07:12:38 10/18/19 25 10/17/2024 CBC W/DIF F absolute neutrophils 5.9 10'3/ uL 1.5-8. 0 Not Available [facility] (Lab) [address] [facility], [place], [address], 10/18/2024 07:12:38 10/18/19 25 10/17/2024 CBC W/DIF F absolute lymphocytes 1.9 10'3/ uL 1.0-4. 0 Not Available [facility] (Lab) [address] [facility], [place], [address], 10/18/2024 07:12:38 10/18/19 25 10/17/2024 CBC W/DIF F absolute monocytes 1.0 10'3/ uL 0.2-1. 0 Not Available [facility] (Lab) [address] [place], [address], 10/18/2024 07:12:38 10/18/19 25 10/17/2024 CBC W/DIF F absolute eosinophils 0.1 10'3/ uL 0.0-0. 6 Not Available [facility] (Lab) [address] [place], [address], 10/18/2024 07:12:38 10/18/19 25 10/17/2024 CBC W/DIF F absolute basophils 0.0 10'3/ uL 0.0-0. 3 Not Available [facility] (Lab) [address] [facility] [place], [address], 10/18/2024 07:12:38 10/18/19 25 10/17/2024 CBC W/DIF F absolute immature granulocytes 0.0 10'3/ uL 0.00-0 .10 Refer ence range s for nonbi nary/ inter sex or unspe cifie d gende r patie nts have not been estab lishe d. Pleas e refer [facility] for range s estab lishe d for cisge nder patie nts and evalu ate in the clini coco jodi xt of the indiv idual patie nt: https ://la and book. nm.or g/gen derx Not Available [facility] (Lab) [address] [facility], [place], [address], 10/18/2024 07:12:38 10/18/19 25 10/17/2024 URIC ACID uric acid 3.7 mg/dL 2.3-6. 6 Not Available [facility] (Lab) [address] [facility], [place], [address], 10/18/2024 07:12:39 10/18/19 25 10/17/2024 CMP(C OMPRE HENSI VE METAB OLIC PANEL ) sodium 136 mmol/ L 133-14 6 Not Available [facility] (Lab) [address] [place], [address], 10/18/2024 07:12:39 10/18/19 25 10/17/2024 CMP(C OMPRE HENSI VE METAB OLIC PANEL ) potassium 3.9 mmol/ L 3.5-5. 1 Not Available [facility] (Lab) [address] [place], [address], 10/18/2024 07:12:39 10/18/19 25 10/17/2024 CMP(C OMPRE HENSI VE METAB OLIC PANEL ) chloride 104 mmol/ L 98-107 Not Available [facility] (Lab) [address] [place], [address], 10/18/2024 07:12:39 10/18/19 25 10/17/2024 CMP(C OMPRE HENSI VE METAB OLIC PANEL ) carbon dioxide 24 mmol/ L 21-31 Not Available [facility] (Lab) [address] [facility], [place], [address], 10/18/2024 07:12:39 10/18/19 25 10/17/2024 CMP(C OMPRE HENSI VE METAB OLIC PANEL ) anion gap 8 mmol/ L 4-13 Not Available [facility] (Lab) [address] [facility], [place], [address], 10/18/2024 07:12:39 10/18/19 25 10/17/2024 CMP(C OMPRE HENSI VE METAB OLIC PANEL ) blood urea nitrogen 9 mg/dL 7-[address] [facility] (Lab) [address] [facility], [place], [address], 10/18/2024 07:12:39 10/18/19 25 10/17/2024 CMP(C OMPRE HENSI VE METAB OLIC PANEL ) creatinine 0.58 mg/dL 0.60-1 .30 low Not Available [facility] (Lab) [address] [facility], [place], [address], 10/18/2024 07:12:39 10/18/19 25 10/17/2024 CMP(C OMPRE HENSI VE METAB OLIC PANEL ) egfrcr (CKD-epi 2020) >90 mL/mi n/1.7 3_m2 >=60 Not Available [facility] (Lab) [address] [facility], [place], [address], 10/18/2024 07:12:39 10/18/19 25 10/17/2024 CMP(C OMPRE HENSI VE METAB OLIC PANEL ) calcium 8.2 mg/dL 8.3-10 .5 low Not Available [facility] (Lab) [address] [facility], [place], [address], 10/18/2024 07:12:39 10/18/19 25 10/17/2024 CMP(C OMPRE HENSI VE METAB OLIC PANEL ) glucose 62 mg/dL 70-100 low Not Available [facility] (Lab) [address] [facility], [place], [address], 10/18/2024 07:12:39 10/18/19 25 10/17/2024 CMP(C OMPRE HENSI VE METAB OLIC PANEL ) protein, total 5.8 g/dL 6.4-8. 3 low Not Available [facility] (Lab) [address] [facility], [place], [address], 10/18/2024 07:12:39 10/18/19 25 10/17/2024 CMP(C OMPRE HENSI VE METAB OLIC PANEL ) albumin 3.2 g/dL 3.5-5. 0 low Not Available [facility] (Lab) [address] [facility], [place], [address], 10/18/2024 07:12:39 10/18/19 25 10/17/2024 CMP(C OMPRE HENSI VE METAB OLIC PANEL ) ALT 10 units /L 9-43 Not Available [facility] (Lab) [address] [place], [address], 10/18/2024 07:12:39 10/18/19 25 10/17/2024 CMP(C OMPRE HENSI VE METAB OLIC PANEL ) alkaline phosphatase 76 units /L 34-104 Not Available [facility] (Lab) [address] [place], [address], 10/18/2024 07:12:39 10/18/19 25 10/17/2024 CMP(C OMPRE HENSI VE METAB OLIC PANEL ) AST 17 units /L 13-39 Not Available [facility] (Lab) [address] [place], [address], 10/18/2024 07:12:39 10/18/19 25 10/17/2024 CMP(C OMPRE HENSI VE METAB OLIC PANEL ) bilirubin, total 0.3 mg/dL 0.2-1. 2 Not Available [facility] (Lab) [address] [facility], [place], [address], 10/18/2024 07:12:39 10/18/19 25 10/17/2024 PROTE IN/CR EATIN INE RATIO , URINE creatinine, urine 83.1 mg/dL R-No refer ence range estab lishe d for this assay Not Available [facility] (Lab) [address] [facility], [place], [address], 10/18/2024 07:12:40 10/18/19 25 10/17/2024 PROTE IN/CR EATIN INE RATIO , URINE protein, urine 11 mg/dL R-No refer ence range estab lishe d for this assay Not Available [facility] (Lab) [address] [facility], [place], [address], 10/18/2024 07:12:40 10/18/19 25 10/17/2024 PROTE IN/CR EATIN INE RATIO , URINE protein/crea tinine ratio, urine 0.13 . No Refer ence Range avail able for Rando m Urine s. A prote in to creat inine ratio of >=0.1 9 is a good predi ctor of signi fican t prote inuri a. A level of <0.14 can rule out signi fican t prote inuri a. Not Available [facility] (Lab) [address] [facility], [place], [address], 10/18/2024 07:12:40 09/30/19 25 09/29/2024 US, obste tric, follo w-up No observ [facility]ion [facility] [address], [place], [address], 09/29/2024 17:26:10 09/30/19 25 09/29/2024 US, obste tric, follo w-up No observ ation record ed. [email or web address] [address], [place], [address], 10/04/2024 13:03:51 10/28/19 25 10/27/2024 imagi ng/di chetanos tic resul t No observ ation record ed. [email or web address] [address], [place], [address], 10/27/2024 16:20:45 Result Notes None recorded. Problems Name Problem SNOMED Code Status Onset Date Resolution Date Notes Provider Name and Address Organization Details Recorded Time 25557957 Active 2023 Thelma Segovia [facility] 16:16:40 Placenta circumval jai 3776999 Active growth SONIA JOLLY MD [address], [place], [address], [facility] 18:25:37 Marginal insertion of umbilical cord 58485480 Active q4 week growth SONIA JOLLY MD [address], [place], [address], [facility] 5 18:26:13 Blood group O Rh(D) negative 024669230 Active 08/08/2024 rhogam receicved Elvie Euceda [facility] 5 16:24:42 Problem Notes None recorded. Procedures Surgical History Date Name Laterality Status Provider Name and Address Organization Details Recorded Time 01/04/2023 Date of Last Pap Smear completed Thelma Segovia [facility] 04/11/2024 16:54:25 Imaging Results None recorded. Procedure Notes None recorded. Medical Equipment None Reported. Allergies No known drug allergies Medications Name Sig Start Date Stop Date Status Note LastModified by Organization Details LastModified Time cyclobenzap rine 10 mg tablet TAKE 1 TABLET BY MOUTH THREE TIMES DAILY 09/29 completed Not Available Not Available Not Available rizatriptan 10 mg tablet 01/04 completed Not Available Not Available Not Available sumatriptan 50 mg tablet Take 1 tablet every day by oral route as needed. 09/29 completed Not Available Not Available Not Available ondansetron 8 mg disintegrat ing tablet DISSOLVE 1 TABLET ON THE TONGUE EVERY 6 TO 8 HOURS NEEDED 10/10 completed Not Available Not Available Not Available erythromyci n 5 mg/gram (0.5 %) eye ointment 01/04 completed Not Available Not Available Not Available methylpredn isolone 4 mg tablets in a dose pack 01/04 completed Not Available Not Available Not Available [facility] ODT 75 mg disintegrat ing tablet 09/29 completed Not Available Not Available Not Available Vitals Date Recorded Body weight Body mass index (BMI) Body height Systolic blood pressure Diastolic blood pressure Provider Name and Address Organization Details Last Updated DateTime 10/10/2024 618819.9 1377 g 34.6 kg/m2 170.18 cm 124 mm[Hg] 74 mm[Hg] Elvie Euceda [facility] 5 10:23:37 Date Recorded Body height Body mass index (BMI) Body weight Systolic blood pressure Diastolic blood pressure Provider Name and Address Organization Details Last Updated DateTime 10/17/2024 170.18 cm 34.8 kg/m2 749190.5 1 g 130 mm[Hg] 82 mm[Hg] [facility] 09:57:44 Date Recorded Body weight Body mass index (BMI) Body height Systolic blood pressure Diastolic blood pressure Provider Name and Address Organization Details Last Updated DateTime 10/27/2024 788816.2 8325 g 35.2 kg/m2 170.18 cm 142 mm[Hg] 87 mm[Hg] [facility] 16:14:21 Social History Question Answer Notes LastModified by Organizat ion Details LastModified Time Tobacco Smoking Status Never Smoker Roslyn Lowry [facility] 01/04/2023 15:19:09 Do You Have An Advance Directive? No Information n ot available 04/11/2024 If You Are , What Was Your Level Of Alcohol Consumption Prior To ? Occasional [email or web address] Information not available 09/29/2024 How Many Years Have You Consumed Alcohol? 6 Information not available 04/11/2024 Are You Blind Or Do You Have Difficulty Seeing? No Information n ot available 01/04/2023 What Is Your Level Of Caffeine Consumption? None [email or web address] Information not available 04/11/2024 How Much Tobacco Do You Chew? None [email or web address] Information not available 04/11/2024 In The 14 Days Before Symptom Onset, Have You Had Close Contact With A Laboratory-confirm ed COVID-19 While That Case Was Ill? No Information n ot available 04/11/2024 In The 14 Days Before Symptom Onset, Have You Had Close Contact With A Person Who Is Under Investigation For COVID-19 While That Person Was Ill? No [email or web address] Information not available 04/11/2024 Have You Been To An Area Known To Be High Risk For COVID-19? No [email or web address] Information not available 04/11/2024 Are You Deaf Or Do You Have Serious Difficulty Hearing? No Information not available 01/04/2023 What Type Of Diet Are You Following? REGULAR [email or web address] Information n ot available 04/11/2024 What Is The Highest Grade Or Level Of School You Have Completed Or The Highest Degree You Have Received? EF97506-0 [email or web address] Information not available 04/11/2024 Are There Any Guns Present In Your Home? Yes [email or web address] Information not available 04/11/2024 Do You Use Protection During Sex? No [email or web address] Information not available 04/11/2024 Do You Use Your Seat Belt Or Car Seat Routinely? Yes Information not available 04/11/2024 Do You Have Smoke And Carbon Monoxide Detectors In Your Home? Yes Information not available 04/11/2024 How Much Tobacco Do You Smoke? No [email or web address] Information not available 04/11/2024 Do You Use Sunscreen Routinely? No [email or web address] Information not available 04/11/2024 Have You Used IV Drugs? No [email or web address] Information not available 04/11/2024 Do You Have Difficulty Walking Or Climbing Stairs? No Information not available 01/04/2023 Sex: Unknown Functional Status Question Answer Note LastModified by Organizat ion Details LastModified Time Do you use any illicit or recreational drugs? Yes [email or web address] Information not available 04/11/2024 What is your level of alcohol consumption? None [email or web address] Information not available 09/29/2024 Are you able to walk? [email or web address] Information not available 01/04/2023 Are you able to care for yourself? 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 No Information not available 01/04/2023 What is your exercise level? None [email or web address] Information not available 04/11/2024 Mental Status Question Answer Note LastModified by Organization D etails LastModified Time Do you feel stressed (tense, restless, nervous, or anxious, or unable to sleep at night)? [id number] Information not available 04/11/2024 Family History Relationship Description Onset Age of this Age Resolved Age Notes LastModified by Organization Details LastModified Time Maternal Grandmother Heart disease [email or web address] Not available 2023 16:49:56 Maternal Grandmother Essential hypertension [email or web address] Not available 0 10/27/2024 15:17:34 Mother Essential hypertension [email or web address] Not available 0 10/27/2024 15:17:34 Father Essential hypertension [email or web address] Not available 0 10/27/2024 15:17:34 Father Heart disease 50 [email or web address] Not available 08/2024 15:51:29 Father Heart disease [email or web address] Not available 2023 16:15:56 Maternal Grandfather Essential hypertension [email or web address] Not available 0 10/27/2024 15:17:34 Maternal Uncle Essential hypertension [email or web address] Not available 0 10/27/2024 15:17:34 Paternal Grandmother Heart disease 60 [email or web address] Not available 08/2024 15:51:30 Paternal Grandmother Heart disease [email or web address] Not available 2023 16:15:56 Paternal Grandfather Heart disease 70 [email or web address] Not available 08/2024 15:51:30 Paternal Grandfather Heart disease Not available 2023 16:15:56 Medical History Condition [...] N Thrombophilias N Gynecological History Statement/Question Response Date of Last Mammogram Flow Moderate Date of LMP 02/02/2024 N On BCP's at Conception? N STIs/STDs N Was last menstrual period normal Y HPV Vaccine Y Duration of Flow (days) 5 Current Control Method Are cycles usually normal Y Date of Last Colonoscopy Frequency of Cycle (Q days) 28 Sexually Active? Y None Menses Monthly Y Date of DEXA bone scan Age of first menstrual cycle 15 Date of Last Pap Smear 01/04/2023 Sexual Problems? N LMP Definite N Obstetrics History GPAL:G 1 P 0 0 0 0 Type Value Living 0 Total 1 Past Encounters Encounter ID Performer Location Encounter Start Date Encounter Closed Date Diagnosis/Indication Diagnosis SNOMED-CT Code Diagnosis ICD10 Code Diagnosis Note [id number] LUCILA Ordonez [place] [address] [address] 01/04/2023 14:48:42 01/05/2023 10:25:35 Gynecologic examination 52043283 Z01.419 Take Calcium with Vitamin D 1200mg [...] in 1 year or sooner if needed [id number] Salvador Keen MD [place] [address] [address] 04/11/2024 16:13:21 04/11/2024 16:41:40 Uterine size for dates discrepancy 436079661 O26.841 Z3A.09 [id number] SONIA JOLLY MD [place] [address] [address] 04/11/2024 16:13:39 04/13/2024 09:31:57 Nausea and vomiting 81648735 R11.2 Migraine 18895819 G43.90 9 - previously on Nurtec, stopped with - discussed tylenol PRN then sumatripta n if not improved test positive 961505425 Z32.01 1. Exam today within normal limits.2. Ultrasound today confirms GA and viability. EDC . GC/Lynn a testing done: will f/u as indicated. 4. ACOG guidelines and plan of care for reviewed with patient. All questions answered.5 . Return to office at 12 weeks for new OB visit6. Will need new OB labs at next visit.7. Genetic screening: desires [id number] Salvador Keen MD [place] [address],[place] [address] 05/09/2024 15:53:24 05/09/2024 16:50:46 screening 401600163 Z36.82 Z3A.13 [id number] SONIA JOLLY MD [place] [address],[place] [address] 05/09/2024 15:53:44 05/09/2024 17:07:09 Routine care 726111159 Z34.91 [id number] SONIA JOLLY MD [place] [address],[place] [address] 06/09/2024 09:54:12 06/09/2024 11:59:40 Routine care 628844779 Z34.91 [id number] SONIA JOLLY MD [place] [address],[place] [address] 07/04/2024 16:19:52 07/05/2024 09:09:42 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 Marginal i nsertion of umbilical cord 23241064 O43.129 Gestation period, 21 weeks 23078089 Z3A.21 [id number] Salvador Keen MD [place] [address],[place] [address] 07/04/2024 16:25:20 07/04/2024 17:53:25 screening for malformation 022552799 Z36.3 Z3A.21 [id number] SONIA JOLLY MD [place] [address],[place] [address] 08/04/2024 15:20:25 08/04/2024 16:07:29 screening 521717310 Z36.89 O36.0130 Marginal i nsertion of umbilical cord 08425615 O43.129 - continue q week growth US Placenta circumvallata 9208660 O43.119 Gestation period, 26 weeks 27427245 Z3A.26 [id number] MD Inna Jesus [address],[place] [address] 08/04/2024 15:20:05 08/07/2024 09:44:21 screening 361512140 Z36.2 Z3A.26 [id number] SONIA JOLLY MD [place] [address],[place] [address] 08/18/2024 09:34:11 08/18/2024 11:48:25 RhD negative 175027626 Z01.83 Impaired g lucose tolerance in 848051116 O99.810 Marginal i nsertion of umbilical cord 35661369 O43.129 - continue q week growth US Gestation period, 28 weeks 79547451 Z3A.28 [id number] MD Inna Jesus [address],[place] [address] 09/01/2024 15:50:59 09/01/2024 16:53:13 Marginal insertion of umbilical cord 83522973 O43.123 Z3A.30 [id number] January Lees CNM [place] [address],[place] [address] 09/01/2024 15:51:21 09/01/2024 17:09:51 Gestation period, 30 weeks 66171403 Z3A.30 [id number] Salvador Keen MD [place] [address],[place] [address] 09/22/2024 15:28:44 09/22/2024 16:33:05 Third trimester 67467803 Z34.03 [id number] January Lees CNM [place] [address],[place] [address] 09/29/2024 15:22:38 10/02/2024 10:54:52 Gestation period, 34 weeks 25524600 Z3A.34 [id number] MD Inna Jesus [address],[place] [address] 09/29/2024 15:03:50 09/29/2024 15:49:39 Abnormal placenta affecting management of mother 23019307 O43.193 Z3A.34 [id number] January Lees [facility] [address],[place] [address] 10/10/2024 10:08:00 10/10/2024 11:33:38 [id number] [facility] [address] [place] [address] 10/17/2024 09:20:57 10/17/2024 10:47:43 Gestation period, 36 weeks 67741568 Z3A.36 [id number] January Lees [facility] [address],[place] [address] 10/27/2024 15:18:57 10/27/2024 16:29:02 Gestation period, 38 weeks 36668531 Z3A.38 Oligohydramnios 50441695 O41.03X0 Health Concerns Section Related Observation LastModified by Organization Detai ls LastModified Time None Recorded Concern Status LastModified by Organization Details LastModified Time None Recorded Advance Directives Directive N: Payers Encounter Date Sequence Insurance Name Policy Number Policy Rosas Covered Member ID Rosas Member ID Guarantor Name 10/10/2024 1 SYLVIA [id number] January Cook [id number] 1 January Cook 10/17/2024 1 SYLVIA [id number] January Cook [id number] 1 January Cook 10/27/2024 1 SYLVIA [id number] January Cook [id number] 1 January Cook OBGyn Episode Ob Episode Information Episode Created Date Number of Fetuses Patient Bloodtype Patient rh Status Prepregnancy Weight lbs Domestic Partner Domestic Partner Phone Father Name 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 05/09/20 24 1 O Negative Jake Finneye OPEN Fetus Data First Name Last Name Admitted to NICU Weight (g) Sex Living Outcome Pediatric Complications Fetus ID Race Codes Race Delivery Type [id number] Problems Problem Notes Problem Name Start Date End Date Resolution Snomed Code Not e Placenta circumvallata 9092060 growth US Marginal insertion of umbilical cord 87734337 q4 week growt h US Blood group O Rh(D) negative 504874487 08/08/2024 vaughn deras receicved Joesph Calculation Initial Joesph Date Initial [...] Weight in lbs Pre/Post Dialysis Refused Weight 199.294562291263 BP Diastolic BP Location Tested BP Systolic BP Type 75 L arm 117 sitting Fetus Heart Rate Present A 154 Fetus Movement Comments Patient presents to [facility] care. Headaches improved, did not tolerate sumatriptan [...] Type Weight in lbs Pre/Post Dialysis Refused 197.057474388599 BP Diastolic BP Location Tested BP Systolic [...] Weight in lbs Pre/Post Dialysis Refused Weight 201.085028095621 BP Diastolic BP Location Tested BP Systolic [...] Weight in lbs Pre/Post Dialysis Refused Weight 205.089620778815 BP Diastolic BP Location Tested BP Systolic [...] Weight in lbs Pre/Post Dialysis Refused Weight 205.172768694917 BP Diastolic BP Location Tested BP Systolic [...] Type Weight in lbs Pre/Post Dialysis Refused 210.396303540234 BP Diastolic BP Location Tested BP Systolic BP Type 76 120 Fetus Heart Rate Present Fetus Movement A Yes Comments Patient states that is havin g some nausea and vomiting. Reviewed precautions and education, +FM, has a cold, tylenol cold ok, efw 58% Flowsheet Date 09/22/2024 Dean Score Blood Edema Fundus Height Fundus Units Glucose Ketones Leukocytes Nitrite Labor Signs Protein Cervic Dilation Cervic Effacement Cervic Station Type Weight in lbs Pre/Post Dialysis Refused Weight 211.944123062831 BP Diastolic BP Location Tested BP Systolic BP Type 77 L arm 121 sitting Fetus Heart Rate Present A 154 Present Fetus Movement A Yes Comments no complaints, no problems, routine care, no contractions, no vaginal bleeding, no loss of fluid, no cramping Flowsheet Date 09/29/2024 Dean Score Blood Edema Fundus Height Fundus Units Glucose Ketones Leukocytes Nitrite Labor Signs Protein Cervic Dilation Cervic Effacement Cervic Station Type Weight in lbs Pre/Post Dialysis Refused BP Diastolic BP Location Tested BP Systolic BP Type Fetus Heart Rate Present Fetus Movement Comments Flowsheet Date 09/29/2024 Dean Score Blood Edema Fundus Height Fundus Units Glucose Ketones Leukocytes Nitrite Labor Signs Protein Cervic Dilation Cervic Effacement Cervic Station neg none Type Weight in lbs Pre/Post Dialysis Refused Weight 214.031463774632 BP Diastolic BP Location Tested BP Systolic BP Type 73 123 Fetus Heart Rate Present Fetus Movement A Yes Comments Patient is having some nause a. reviewed precautions and education, has preadmission scheuled, +FM efw 42% reviewed fibroid size. plan 2 week f/u with gbs Flowsheet Date 10/10/2024 Dean Score Blood Edema Fundus Height Fundus Units Glucose Ketones Leukocytes Nitrite Labor Signs Protein Cervic Dilation Cervic Effacement Cervic Station none neg Type Weight in lbs Pre/Post Dialysis Refused 221.793268173442 BP Diastolic BP Location Tested BP Systolic BP Type 74 124 Fetus Heart Rate Present A 145 Present Fetus Movement A Yes Comments f/u with us as scheduled +FM GBS collected, education and precautions f/u 1 week Flowsheet Date 10/17/2024 Dean Score Blood Edema Fundus Height Fundus Units Glucose Ketones Leukocytes Nitrite Labor Signs Protein Cervic Dilation Cervic Effacement Cervic Station Type Weight in lbs Pre/Post Dialysis Refused BP Diastolic BP Location Tested BP Systolic BP Type Fetus Heart Rate Present Fetus Movement Comments Flowsheet Date 10/17/2024 Dean Score Blood Edema Fundus Height Fundus Units Glucose Ketones Leukocytes Nitrite Labor Signs Protein Cervic Dilation Cervic Effacement Cervic Station neg trace Type Weight in lbs Pre/Post Dialysis Refused Weight 222.4840816097 BP Diastolic BP Location Tested BP Systolic BP Type 82 130 Fetus Heart Rate Present Fetus Movement A Yes Comments Patient is having some swell ing and headaches. check labs today, precautions reviewed us today plan growth when due, labor precautions f/u one week Flowsheet Date 10/27/2024 Dean Score Blood Edema Fundus Height Fundus Units Glucose Ketones Leukocytes Nitrite Labor Signs Protein Cervic Dilation Cervic Effacement Cervic Station Type Weight in lbs Pre/Post Dialysis Refused BP Diastolic BP Location Tested BP Systolic BP Type Fetus Heart Rate Present Fetus Movement Comments Flowsheet Date 10/27/2024 Dean Score Blood Edema Fundus Height Fundus Units Glucose Ketones Leukocytes Nitrite Labor Signs Protein Cervic Dilation Cervic Effacement Cervic Station neg trace Type Weight in lbs Pre/Post Dialysis Refused 225.346823982553 BP Diastolic BP Location Tested BP Systolic BP Type 87 142 Fetus Heart Rate Present Fetus Movement A Yes Comments Patient is having contractio ns, swelling, nausea and vomiting. Oligohydramnios on US today, reviewed with dr keen plan IOL today pt to LD Menstrual History Last Menstrual Date Menses Monthly [...]
--- OUTSIDE RECORDS SUMMARY | 2024-10-27 15:35 | XMS_ITS | Clinical Summary ---
Author Organization [facility] Address [address] [place] [address] Care Team Providers Care Core Stacker Name Role Phone Unavailable Primary Care Provider Unavailabl e Source Comments [facility],non-owned Affiliates and Associated Physician Practices is amultiple site organization consisting of ambulatory clinics and hospital sitesin [place], [place], [place] and [place]. This disclosure is being madepursuant to the Care Everywhere program and may not contain all information available regarding this patient. Last updated 18.[facility] Allergies No known active allergies Medications * Be aware that medications may not be up to date on this document. Alwaysverify current medications with the patient. minocycline (MINOCIN) 100 MG capsuleIndicatio ns:Acne Take 1 Cap by mouth 2 times daily for 30 days. 60 Cap 1 01/01/2011 Active Active Problems Problem Noted Date Diagnosed Date Acne 06/04/2011 Immunizations Immunization Administration Dates Next Due DTaP VACCINE IM [...] Date Smoking Tobacco: Never Smokeless Tobacco: Never Comments No Sex and Gender Information Value Date Recorded Sex Assigned at Not on file Legal Sex Female 12:05 PM FAMILY SUPPORT WORKER Gender Identity Not on file Sexual Orientation Not on file Last Filed Vital Signs Vital Sign Reading Time Taken Comments Blood Pressure 118/68 07/04/2019 6:33 PM FAMILY SUPPORT WORKER Pulse 85 07/04/2019 6:33 PM FAMILY SUPPORT WORKER Temperature 36.8 C (98.2 F) 07/04/2019 6:33 PM FAMILY SUPPORT WORKER Respiratory Rate 14 07/04/2019 6:33 PM FAMILY SUPPORT WORKER Oxygen Saturation 98% 07/04/2019 6:33 PM FAMILY SUPPORT WORKER Inhaled Oxygen Concentration - - Weight 81.6 kg (180 lb) 07/04/2019 6:33 PM FAMILY SUPPORT WORKER Height 170.2 cm (5' 7) 07/04/2019 6:33 PM FAMILY SUPPORT WORKER Body Mass Index 28.19 07/04/2019 6:33 PM FAMILY SUPPORT WORKER Plan of Treatment Health Maintenance Due Date Last Done Comments HIV SCREENING 2011 HEPATITIS C SCREENING 06/02/2014 [...] on patient's age to complete this topic Insurance [facility] * Guarantor: JANUARY COOK Account Type Relation to Patient Date of Phone Billing Address Personal/Family 1995 [address]OOK [address] [place] [address]
--- OUTSIDE RECORDS SUMMARY | 2024-10-27 15:35 | XMS_ITS | Continuity of Care Document ---
Author Organization [facility] Address [address] [place] [address] Care Team Providers Care Criminal Justice Department Chair Name Role Phone BETZY WU Primary Care Provider Assessment Encounter Date Assessment Date Assessment LastModified by Organization Details LastModified Time 10/27/2024 10/27/2024 Patient is _38__weeks . Discussed [...] Abnormal Flag Note LastModifiedBy Organization Detail LastModifiedTime 05/09/20 24 05/09/2024 US, obste tric, nucha l trans lucen cy No observ ation record ed. [email or web address] [place] [address], [place], [address], 05/09/2024 17:21:04 05/09/20 24 05/09/2024 US, obste tric, nucha l trans lucen cy No observ ation record ed. [email or web address] [address], [place], [address], 05/09/2024 17:38:52 07/04/19 25 07/04/2024 US, obste tric, 2nd or 3rd trime ster No observ ation record ed. [email or web address] [place] [address], [place], [address], 07/04/2024 18:11:17 07/04/19 25 07/04/2024 US, obste tric, follo w-up No observ ation record ed. [address], [place], [address], 07/05/2024 09:08:29 08/05/19 25 08/04/2024 US, obste tric, follo w-up No observ ation record ed. MARGA [address], [place], [address], 08/04/2024 20:59:31 08/05/19 25 08/04/2024 US, obste tric, follo w-up No observ ation record ed. [facility] [address], [place], [address], 08/04/2024 17:37:03 09/02/19 25 09/01/2024 US, obste tric, follo w-up No observ ation record ed. [facility] [address], [place], [address], 09/01/2024 17:51:14 09/02/19 25 09/01/2024 US, obste tric, follo w-up No observ ation record ed. [email or web address] [address], [place], [address], 09/05/2024 22:46:34 09/30/19 25 09/29/2024 US, obste tric, follo w-up No observ ation record ed. [facility] [address], [place], [address], 09/29/2024 17:26:10 09/30/19 25 09/29/2024 US, obstanne tric, woodyo w-up No observ ation record ed. [email or web address] [address], [place], [address], 10/04/2024 13:03:51 10/28/19 25 10/27/2024 imagi ng/di agnos tic resul t No observ ation record ed. [email or web address] [address], [place], [address], 10/27/2024 16:20:45 Result Notes None recorded. Problems Name Problem SNOMED Code Status Onset Date Resolution Date Notes Provider Name and Address Organization Details Recorded Time 23428410 Active 2023 Thelma mandel, [facility] 4 16:16:40 Placenta circumval jai 5323080 Active growth SONIA JOLLY MD [address], [place], [address], [facility] 18:25:37 Marginal insertion of umbilical cord 69708221 Active q4 week growth SONIA JOLLY MD [address], [place], [address], [facility] 5 18:26:13 Blood group O Rh(D) negative 383511681 Active 08/08/2024 rhogam receicved Elvie mandel [facility] 5 16:24:42 Problem Notes None recorded. Procedures Surgical History Date Name Laterality Status Provider Name and Address Organization Details Recorded Time 01/04/2023 Date of Last Pap Smear completed Thelma Segovia [facility] 04/11/2024 16:54:25 Imaging Results None recorded. [...] Not Available Not Available [facility] ODT 75 mg disintegrat ing tablet 09/29 completed Not Available Not Available Not Available Vitals Date Recorded Body weight Body mass index (BMI) Body height Systolic blood pressure Diastolic blood pressure Provider Name and Address Organization Details Last Updated DateTime 10/27/2024 022276.2 8325 g 35.2 kg/m2 170.18 cm 142 mm[Hg] 87 mm[Hg] Elvie Euceda [facility] 16:14:21 Social History Question Answer Notes LastModified by Organizat ion Details LastModified Time Tobacco Smoking Status Never Smoker Roslyn mandel, [facility] 01/04/2023 15:19:09 Do You Have An Advance Directive? No [email or web address] Information n ot available 04/11/2024 If You Are , What Was Your Level Of Alcohol Consumption Prior To ? Occasional [email or web address] Information not available 09/29/2024 How Many Years Have You Consumed Alcohol? 6 [email or web address] Information not available 04/11/2024 Are You Blind Or Do You Have Difficulty Seeing? No Information n ot available 01/04/2023 What Is Your Level Of Caffeine Consumption? None [email or web address] Information not available 04/11/2024 How Much Tobacco Do You Chew? None [email or web address] Information not available 04/11/2024 In The 14 Days Before Symptom Onset, Have You Had Close Contact With A Laboratory-confirm ed COVID-19 While That Case Was Ill? No [email or web address] Information n ot available 04/11/2024 In The 14 Days Before Symptom Onset, Have You Had Close Contact With A Person Who Is Under Investigation For COVID-19 While That Person Was Ill? No [email or web address] Information not available 04/11/2024 Have You Been To An Area Known To Be High Risk For COVID-19? No [email or web address] Information not available 04/11/2024 Are You Deaf Or Do You Have Serious Difficulty Hearing? No Information not available 01/04/2023 What Type Of Diet Are You Following? REGULAR Information n ot available 04/11/2024 What Is The Highest Grade Or Level Of School You Have Completed Or The Highest Degree You Have Received? [id number] [email or web address] Information not available 04/11/2024 Are There Any Guns Present In Your Home? Yes [email or web address] Information not available 04/11/2024 Do You Use Protection During Sex? No [email or web address] Information not available 04/11/2024 Do You Use Your Seat Belt Or Car Seat Routinely? Yes [email or web address] Information not available 04/11/2024 Do You Have Smoke And Carbon Monoxide Detectors In Your Home? Yes [email or web address] Information not available 04/11/2024 How Much Tobacco Do You Smoke? No [email or web address] Information not available 04/11/2024 Do You Use Sunscreen Routinely? No Information not available 04/11/2024 Have You Used IV Drugs? No Information not available 04/11/2024 Do You Have Difficulty Walking Or Climbing Stairs? No Information not available 01/04/2023 Sex: Unknown Functional Status Question Answer Note LastModified by Organizat ion Details LastModified Time Do you use any illicit or recreational drugs? Yes [email or web address] Information not available 04/11/2024 What is your level of alcohol consumption? None [email or web address] Information not available 09/29/2024 Are you able to walk? [email or web address] Information not available 01/04/2023 Are you able to care for yourself? 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 No Information not available 01/04/2023 What is your exercise level? None [email or web address] Information not available 04/11/2024 Mental Status Question Answer Note LastModified by Organization D etails LastModified Time Do you feel stressed (tense, restless, nervous, or anxious, or unable to sleep at night)? [id number] Information not available 04/11/2024 Family History Relationship Description Onset Age of this Age Resolved Age Notes LastModified by Organization Details LastModified Time Maternal Grandmother Heart disease [email or web address] Not available 2023 16:49:56 Maternal Grandmother Essential hypertension [email or web address] Not available 0 10/27/2024 15:17:34 Mother Essential hypertension [email or web address] Not available 0 10/27/2024 15:17:34 Father Essential hypertension [email or web address] Not available 0 10/27/2024 15:17:34 Father Heart disease 50 [email or web address] Not available 08/2024 15:51:29 Father Heart disease [email or web address] Not available 2023 16:15:56 Maternal Grandfather Essential hypertension [email or web address] Not available 0 10/27/2024 15:17:34 Maternal Uncle Essential hypertension [email or web address] Not available 0 10/27/2024 15:17:34 Paternal Grandmother Heart disease 60 [email or web address] Not available 08/2024 15:51:30 Paternal Grandmother Heart disease [email or web address] Not available 2023 16:15:56 Paternal Grandfather Heart disease 70 [email or web address] Not available 08/2024 15:51:30 Paternal Grandfather Heart disease [email or web address] Not available 2023 16:15:56 Medical History Condition Response Other N Blood Transfusion N Dermatologic Disorders N Gestational Diabetes N Anxiety Disorder N Autoimmune disease N Arthritis N Polyps N Infertility N Acid Reflux (GERD) N Cancer N Varicosities N Stroke N Neurologic/Epilepsy N Fibromyalgia N Headaches Y Kidney Disease N Heart Problems N Kidney or Bladder Problems N Eating Disorder N Art (IVF or FET) N Hepatitis/Liver Disease N No Past Medical History N Urinary Tract Infection N Asthma N Trauma/Violence N Thrombophilias N Allergies (Food, seasonal, environmental ) N Breast Cancer N Drug/Latex Allergies/Reactions N Lung Disease N Defects or Inherited Disease N Breast Problem N Hematologic disorders N Anesthesia Complications N History of STI N Deep Vein Thrombosis N Polycystic ovary syndrome N History of abnormal pap N Endometriosis N High Cholesterol N Thyroid Problems N GI Problems N Anemia N Psychiatric Illness N Ovarian Cancer N Diabetes N Pulmonary (TB, Asthma) N Eczema N Abuse/Domestic Violence N Depression/ depression N Heart Disease N Pre-Eclampsia N Hypertension N Osteoporosis N Gynecological History Statement/Question Response Date of [...] SNOMED-CT Code Diagnosis ICD10 Code Diagnosis Note [id number] January Lees CNM [place] [address],[facility] [place] [address] 09/29/2024 15:22:38 10/02/2024 10:54:52 Gestation period, 34 weeks 63084631 Z3A.34 [id number] Salvador Keen MD [place] [address] [place] [address] 09/29/2024 15:03:50 09/29/2024 15:49:39 Abnormal placenta affecting management of mother 15692339 O43.193 Z3A.34 [id number] [facility] [address] [place] [address] 10/10/2024 10:08:00 10/10/2024 11:33:38 [id number] [facility] [address] [address] 10/17/2024 09:20:57 10/17/2024 10:47:43 Gestation period, 36 weeks 45932575 Z3A.36 [id number] [facility] [address] [address] 10/27/2024 15:18:57 10/27/2024 16:29:02 Gestation period, 38 weeks 31585444 Z3A.38 Oligohydramnios 07961824 O41.03X0 Health Concerns Section Related Observation LastModified by Organization Detai ls LastModified Time None Recorded Concern Status LastModified by Organization Details LastModified Time None Recorded Payers Encounter Date Sequence Insurance Name Policy Number Policy Rosas Covered Member ID Rosas Member ID Guarantor Name 10/27/2024 1 SYLVIA [id number] January Cook [id number] 1 January Cook OBGyn Episode Ob Episode Information Episode Created Date Number of Fetuses Patient Bloodtype Patient rh Status Prepregnancy Weight lbs Domestic Partner Domestic Partner Phone Father Name Insights Analyst Status 05/09/20 24 1 O Negative Jake Carter OPEN Fetus Data First Name Last Name Admitted to NICU Weight (g) Sex Living Outcome Pediatric Complications Fetus ID Race Codes Race Delivery Type [id number] Problems Problem Notes Problem Name Start Date End Date Resolution Snomed Code Not e Placenta circumvallata 3007576 growth US Marginal insertion of umbilical cord 40279021 q4 week growt h US Blood group O Rh(D) negative 082658122 08/08/2024 rhoga m receicved Joesph Calculation Initial [...] Weight in lbs Pre/Post Dialysis Refused Weight 199.474134466271 BP Diastolic BP Location Tested BP Systolic BP Type 75 L arm 117 sitting Fetus Heart Rate Present A 154 Fetus Movement Comments [facility]. Headaches improved, did not tolerate sumatriptan [...] Type Weight in lbs Pre/Post Dialysis Refused 197.987626377152 BP Diastolic BP Location Tested BP Systolic [...] Weight in lbs Pre/Post Dialysis Refused Weight 201.392438180713 BP Diastolic BP Location Tested BP Systolic [...] Weight in lbs Pre/Post Dialysis Refused Weight 205.981254377089 BP Diastolic BP Location Tested BP Systolic [...] Weight in lbs Pre/Post Dialysis Refused Weight 205.350357459611 BP Diastolic BP Location Tested BP Systolic [...] Type Weight in lbs Pre/Post Dialysis Refused 210.063192569161 BP Diastolic BP Location Tested BP Systolic [...] Weight in lbs Pre/Post Dialysis Refused Weight 211.056687303989 BP Diastolic BP Location Tested BP Systolic [...] Weight in lbs Pre/Post Dialysis Refused Weight 214.087194736023 BP Diastolic BP Location Tested BP Systolic [...] Type Weight in lbs Pre/Post Dialysis Refused 221.848676342663 BP Diastolic BP Location Tested BP Systolic [...] Weight in lbs Pre/Post Dialysis Refused Weight 222.0421977835 BP Diastolic BP Location Tested BP Systolic [...] Type Weight in lbs Pre/Post Dialysis Refused 225.840668385125 BP Diastolic BP Location Tested BP Systolic [...]
--- NOTE | 2024-10-27 15:58 | LDADM ---
This patient, January Carter, was admitted to Labor/Delivery/Recovery 107 on 10/27/24 at 15:25. Plans for labor, pain management and were discussed with patient. Patient/family oriented to hospital policies and general routines including ID bracelet, bed and alarms, visiting hours, pain management, procedures, bathroom and other care routines, personal items, smoking policy, room service/diet and guest tray routines, security routines, and visiting hours. Patient/Family are encouraged to report perceived risks to care and to ask questions if they do not understand what they are told or what they should do. See OBIX for further documentation.
--- NOTE | 2024-10-27 16:26 | PC.NURSE ---
Jeanette Lees CNM at RN station, updated on patient SVE C/T/H. Orders received for 50mcg buccal Cytotec q4H for up to 4 doses PRN.
[2024-10-27] MEDS: miSOPROStol 25 MCG TABLET 50 MCG VAGINAL ×2 (16:47→23:54)
--- NOTE | 2024-10-27 16:49 | P.PNAN_ITS ---
Anes - Eval Pre Procedure Procedure: Labor epidural Date/Time: 10/27/24 16:49 Surgeon: Jennifer Preop Diagnosis: Abdominal pain with contractions Pre Op Diagnosis: IOL Patient Data Age: 29 Gender: F Height: 1.7 m Weight: 100 kg Last Vital Signs Pulse 83 10/27/24 16:06 BP 132/85 10/27/24 16:06 Pulse Ox 97 10/27/24 16:22 O2 Del Method Room Air 10/27/24 15:58 Allergies Allergy/AdvReac Type Severity Reaction Status Date / Time No Known Allergies Allergy Verified 10/27/24 15:55 Home Medications ?Medication ?Instructions ?Recorded ?Confirmed ?Type vit no.95-ferrous 1 tablet PO DAILY 10/21/24 10/27/24 History fumarate 28 mg-folic acid 800 mcg tablet () : gestational age HCG: positive Patient hx anesthesia problems: none Family hx anesthesia problems: none Results Review: All pre-operative results and documents have been reviewed as part of the pre- operative evaluation. [facility] Past Medical History Medical History and not yet delivered Oligohydramnios Migraines Family History Family History Grandparent Congestive heart failure Grandparent Skin cancer Other Glaucoma Hypertension Social History Social History Smoking status: Never smoker Substance use: never Do You Feel Safe in your Home?: Yes Lack of Transportation: No Lack of Food: Never True Current Housing: I Have Housing Concerned About Future Housing: No Difficulty Paying Gas/Electric Bills: No Difficulty Paying for Meds: No Currently Unemployed: No Education: High School Diploma/GED Difficulty w/ Childcare or Family Care: No Spiritual care concerns: No Exam Day of Procedure 10/27/24 16:49 Patient weight: obese Airway: Mallampati scale class II
[2024-10-27 17:21] LABS: Basophils Percent Auto 0.2 % (0.2-1.2); Eosinophils Percent Auto 0.4 % (0-4.4); Hematocrit 32.5 % (37.0-47.0); Hemoglobin 10.3 g/dL (12.0-15.0); Immature Granulocyte Absolute 0.02 K/mm3 (0.00-0.031); Immature Granulocyte Percent A 0.2 % (0-0.5); Lymphocytes Absolute Auto 1.86 K/mm3 (0.9-3.2); Mean Corpuscular HGB Conc 31.7 g/dl (32-36); Mean Corpuscular Hemoglobin 28.2 pg (26-34); Mean Platelet Volume 11.8 fl (7.4-10.4); Monocytes Absolute Auto 1.1 K/mm3 (0.1-0.6); Neutrophils Absolute Auto 5.4 K/mm3 (1.3-6.7); Neutrophils Percent Auto 64.2 % (45.5-73.1); Platelet Count Result 195 k/mm3 (150-375); Red Blood Count 3.65 M/mm3 (4.2-5.4); Red Cell Distribution Width 14.5 % (11.5-14.5); White Blood Count 8.5 K/mm3 (4.5-10.0)
[2024-10-27 17:42] LABS: HIV 1/2 Ab P24 Ag Result Negative (Negative)
[2024-10-27 18:01] LABS: Syphilis IgG/IgM Antibody Negative (Negative)
[2024-10-28] VITALS (180 sets, daily range): BP systolic 94–144; BP diastolic 52–114; PULSE 57–198; TEMP 36.3–37.3; O2SAT 82–100
--- NOTE | 2024-10-28 01:37 | WPDOBADMIT ---
Obstetrics - Admit Note Admission Note: record reviewed. No pertinent additions to the history and/or any subsequent changes in the physical findings that are not consistent with the expected course of the were found. Additions to the history and/or subsequent changes in the physical findings follow. IOL at 38 weeks for oligohydramnios, anticipate vaginal delivery
[2024-10-28] MEDS: diphenhydrAMINE HCl INJ 50 MG/ML VIAL IV PUSH (03:04)
[2024-10-28] MEDS: miSOPROStol 25 MCG TABLET 50 MCG VAGINAL (05:20)
[2024-10-28] MEDS: fentaNYL CITRATE INJ (*CRX) 100 MCG/2 ML VIAL IV PUSH (10:44)
--- NOTE | 2024-10-28 10:50 | PM.OBPNLAB ---
Pain Control Date/time seen: 10/28/24 10:50 Comments: MAIDA 1.5/70/-2 ramsay bulb placed with 40 cc fluid
[2024-10-28] MEDS: LACTATED RINGERS 1,000 ML 125 ML IV CONT (11:05)
[2024-10-28] MEDS: ONDANSETRON INJ 4 MG/2 ML VIAL IV PUSH (11:06)
[2024-10-28] MEDS: OXYTOCIN 30 UNITS/NS 500 ML 30 UNITS/500 ML BAG IV CONT (11:07)
--- NOTE | 2024-10-28 13:31 | PM.OBPNLAB ---
Pain Control Date/time seen: 10/28/24 13:31 Comments: SVE /-2 AROM small amount of clear fluid, anticipate vaginal delivery
[2024-10-28] MEDS: LACTATED RINGERS 1,000 ML 999 ML IV CONT ×2 (16:08→17:44)
[2024-10-28] MEDS: FAMOTIDINE 20 MG/2 ML VIAL IV PUSH (20:46)
[2024-10-28] MEDS: ACETAMINOPHEN 500 MG TABLET 1000 MG PO (21:50)
[2024-10-29] VITALS (63 sets, daily range): BP systolic 111–145; BP diastolic 44–96; PULSE 64–112; RESP 16; TEMP 36.6–37.3; O2SAT 92–100
[2024-10-29] MEDS: ONDANSETRON INJ 4 MG/2 ML VIAL IV PUSH (00:45)
[2024-10-29] MEDS: LACTATED RINGERS 1,000 ML 125 ML IV CONT (01:01)
--- NOTE | 2024-10-29 03:08 | PM.OBPRVD ---
OB - Vaginal Delivery Note Procedure Delivery date: 10/29/24 Induction method: AROM, Per Pitocin Protocol and Other (balloon ) Delivery monitor: External FHT and Internal Uterine Route of delivery: Episiotomy description: None Laceration Description: Perineal - 2nd Degree Delivery repair: vicryl Quantitative Blood Loss (ml): 300 Anesthesia type: Epidural Disposition: Floor Complications: No immediate complications
[2024-10-29] MEDS: OXYTOCIN 30 UNITS/NS 500 ML 30 UNITS/500 ML BAG 125 UNITS IV CONT (03:31)
[2024-10-29] MEDS: IBUPROFEN 600 MG TABLET PO ×3 (04:09→22:52)
--- NOTE | 2024-10-29 05:32 | OBPPTRN ---
Patient transferred to post room # 284 via wheelchair . Support person present. Oriented to unit, room, information board, rooming in, admission packet and security measures. Patient verbalizes understanding.
[2024-10-29] MEDS: MULTIVIT/MIN/PREN/FOL AC/IRON TABLET 1 TAB PO (07:36)
[2024-10-29] MEDS: DOCUSATE SODIUM 100 MG CAPSULE PO ×2 (07:36→16:15)
[2024-10-29] MEDS: ACETAMINOPHEN 325 MG TABLET 650 MG PO ×2 (07:36→19:19)
--- NOTE | 2024-10-29 09:54 | S_PTH ---
PATIENT: January Carter LOC: [facility] U#:[id number] AGE/SX: 29/F ROOM: 284 RE10/27/[address]: Salvador Rodriguez MD : 1995 BED: 00 DIS: 10/31/2024 SPEC #: [id number] RECD: 10/30/24 10:22 STATUS: HARSHAL REQ #: [id number] DAYANA: 10/29/24 09:[address]: January eLes DEPT: [facility] Surgical RECD BY: Nelly Marvin ENTERED: 10/30/24 10:23 SP TYPE: Surgical OTHR DR: MD Reji SantosMD Tissues: A - Placenta Procedures: Hematoxylin and Eosin Stain Gross and Microscopic Level 5
--- NOTE | 2024-10-29 13:32 | WPDANLDPN2 ---
Anes-Prog Note L&D Date/Time: 10/29/24 13:32 Comfortable throughout: labor and delivery Neuraxial method: epidural Epidural/Spinal procedure site: clean & non-tender Neuro status: Neuro function grossly intact. Cardiovascular status: normal Respiratory status: normal Airway patency: baseline Mental status: baseline Vital Signs: Last Vital Signs Temp 36.8 C 10/29/24 12:07 Pulse 69 10/29/24 12:07 Resp 16 10/29/24 12:07 BP 125/69 10/29/24 12:07 Pulse Ox 98 10/29/24 12:07 O2 Del Method Room Air 10/29/24 05:53 Pain score (VAS): 2 I/O: Intake & Output 10/28/24 10/29/24 10/29/24 23:59 07:59 15:59 Intake Total 1999 1912.5 Output Total 1600 Balance 1999 312.5 Patient feedback: Patient satisfied with anesthetic care.
[2024-10-30 05:04] LABS: Hematocrit 25.6 % (37.0-47.0); Hemoglobin 8.1 g/dL (12.0-15.0)
[2024-10-30 07:45] VITALS: BP 99/55; PULSE 82; RESP 16; TEMP 37.1; O2SAT 97
--- NOTE | 2024-10-30 08:28 | P.PNOB_ITS ---
OB - PN: Subj Subjective Date/time seen: 10/30/24 08:28 Patient comments: no complaints, pain well controlled, incisional pain, tolerating diet and flatus present OB - PN: Obj Data Labs 10/30/24 04:54 Labs: Laboratory Results - last 24 hr 10/30/24 04:54 Hgb 8.1 L Hct 25.6 L OB - PN A/P Plan day: 1 Plan: routine care Comments: No problems, routine care Time Spent With Patient Time: Total time spent is greater than 50% in coordination of care (as documented) at patient's floor/unit and/or counseling patient: Exam 2 Const: General: comfortable, no acute distress and alert Resp: Effort & Inspection: normal respiratory effort Auscultation: no crackles, no rales and no rhonchi Cardio: Rate: regular rate Heart sounds: no click, no murmurs and no rubs GI: Inspection: non-distended GI Palp: No Tenderness to palpation present (GI) Auscultation: normal bowel sounds Other: Incision - CDI Extrem: General: normal to inspection, no pedal edema and no calf tenderness
[2024-10-30] MEDS: ACETAMINOPHEN 325 MG TABLET 650 MG PO (08:34)
[2024-10-30] MEDS: DOCUSATE SODIUM 100 MG CAPSULE PO ×2 (08:34→16:57)
[2024-10-30] MEDS: MULTIVIT/MIN/PREN/FOL AC/IRON TABLET 1 TAB PO (08:34)
[2024-10-30] MEDS: POLYSACCHARIDE IRON COMPLEX 150 MG CAPSULE PO ×2 (08:34→16:57)
[2024-10-30] MEDS: LANOLIN (LANSINOH) 7.5 GM CREAM 1 APPLIC TOPICAL (08:37)
--- NOTE | 2024-10-30 11:05 | PC.NURSE ---
Patient called out for a latch check. Baby is latched to the right breast in football hold. Mom is able to latch independently. Baby suckles off and on with some stimulation. Swallows noted. Reviewed nutritive versus nonnutritive sucking. Mom states that she has some nipple soreness but not pain throughout the feeding. Mom says she would like some help with other positions. Encouraged her to call at her next feeding so that we can work on cross cradle. She is also advised to use the mom/baby guide for reference. RN updated.
[2024-10-30] MEDS: SIMETHICONE 80 MG TAB.CHEW PO (14:39)
--- NOTE | 2024-10-30 16:05 | PC.NURSE ---
January called out because she felt that baby was doing more nonnutritive sucking that nutritive at this feeding. She has baby in football hold on the left breast. She states that the latch feels okay. We observed baby and noticed some shallow sucking followed by a few deep suck/swallows. Encouraged mom that baby may have some feedings that aren't as aggressive as others. Educated on suck/swallow ratio and that babies need to build stamina to be able to have more consistent bursts of suckling. Parents are encouraged to continue feeding as they have been and to pay attention to the sucks and swallows so that they can recognize any deviations from baby's norm. Infant has completed her blood sugar checks and there is not a physician order for supplementation at this time. Primary RN updated on feeding.
[2024-10-30] MEDS: IBUPROFEN 600 MG TABLET PO (16:56)
[2024-10-30 20:00] VITALS: BP 129/75; PULSE 71; RESP 16; TEMP 36.3; O2SAT 99
[2024-10-31] MEDS: IBUPROFEN 600 MG TABLET PO (00:06)
--- NOTE | 2024-10-31 07:36 | P.DS_ITS ---
DS: Admitting Diagnosis Discharge Date 10/31/24 Admitting Diagnosis term DS: Discharge Diagnosis Discharge Diagnosis (1) Term delivered: Code(s): O80 - Encounter for full-term uncomplicated delivery Status: Acute OB - DS: Summary OB Procedures : None OB Procedures Intrapartum: Spontaneous Vag Delivery OB Procedures: : None Peripartum Data Laceration Description: Perineal - 2nd Degree Episiotomy description: None Time Spent with Patient Time attestation: Total time spent providing and/or coordinating discharge services: DS: Data Data Completed and Pending Pending studies at discharge: Pending at discharge 10/30/24 09:54 Surgical [PTH] Routine Discharge Plan Discharge Discharging Clinician: Salvador Rodriguez Patient Disposition: Home Activity: pelvic rest Diet: regular Patient Instructions: Antibiotic Form Patient Language: Icelandic Stand Alone Forms: General Discharge Information Follow-up/Referrals: Salvador Rodriguez MD [Physician] - Discharge Medications: Continued PNV [id number] [] 28 mg iron- 800 mcg tablet 1 tablet PO DAILY Date of admission: 10/27/24 15:25 Primary Care Provider: GarryReji Admitting Provider: Salvador Rodriguez Attending physician on admission: January Lees Condition: Stable
--- NOTE | 2024-10-31 07:36 | PM.OBPNVD ---
OB - PN: Subj Subjective Date/time seen: 10/31/24 07:36 OB - PN: Obj Data Labs 10/30/24 04:54 OB - PN A/P Time Spent With Patient Time: Total time spent is greater than 50% in coordination of care (as documented) at patient's floor/unit and/or counseling patient:
[2024-10-31 07:40] VITALS: BP 106/71; PULSE 73; RESP 16; TEMP 36.9; O2SAT 99
--- NOTE | 2024-10-31 08:45 | PC.NURSE ---
Reviewed standard discharge information with patient including monitoring for required output, transition of stools, feeding 8-12 times every 24 hours, milk production, and follow up at [facility] and with it sales representative in the first week of life. Parents are encouraged to take the feeding log and continue to track feedings and output for the first week . Offered outpatient resources with [facility] referral and Services at [facility]. Patient has the Mom/Baby Guide for further education and reference for common concerns, phone numbers, and guidance on when to call the doctor. A feeding plan was added to the infant?s discharge plan. Patient states that she has no further questions or concerns regarding .???
[2024-11-01 09:24] VITALS: BP 129/76; PULSE 82; RESP 18; TEMP 36.7; O2SAT 100
== END 2024-10-31 10:38 | disposition home or self-care (01) | DRG 807 ==
LOC: ANHLDR 16:31 → ANHOB2 10-31 07:37 → ANHLDR 11-01 08:07 → ANHOB2 11-01 08:07
PROVIDERS: Advanced Practice Midwife; Admitting Provider Obstetrics & Gynecology; PCP Internal Medicine; Visit Provider Obstetrics & Gynecology
DX: O41.03X0 Oligohydramnios, third trimester, not applicable or unspecified (principal); Z37.0 Single live birth; O70.1 Second degree perineal laceration during delivery; O32.6XX0 Maternal care for compound presentation, not applicable or unspecified; O43.113 Circumvallate placenta, third trimester; Z3A.38 38 weeks gestation of pregnancy
CPT/HCPCS: 36415; 85014; 85018; 85025; 86593; 86703; 86850; 86900; 86901; 88307; A9270; G0432; J1200; J2405; J2590; J2795; J3010; J7120

== ENCOUNTER 2025-02-16 13:12 | Outpatient (CLI) | payer OTHER, SELFPAY ==
--- NOTE | 2025-02-16 14:44 | PC.NURSE ---
In-1315 Out- 1355 Reason for visit: Pain with pumping, flange sizing, & pumping education ? History: January had a vaginal delivery 10/29. She has had no recent illnesses, and takes her vitamin regularly along with Nurtec on occasion for migraines. She reports she has been getting adequate fluids/diet. She has been using her spectra pump, but questions whether she has the correct size flange. This is her first baby, and she states she is back to work now and pumps at least 3 times during her work day. She states she believes she makes enough milk to feed her baby while she is at work plus a little extra. She reports her main concern is that she has been experiencing pain with pumping, so she requests getting sized for the correct flange size. We remeasured her to get the correct flange size and brought her up a size on her spectra from using a 21 to a 24 flange. After a trail pumping session she reports that the pain has decreased and the overall fit feels better. We were also able to increase the suction on her pump to allow for better nipple stretching. She was also able to latch and feed infant during the appointment and reports no pain with the infants latch. The latch looked optimal and many heavy swallows were heard from baby. Mom states she has been in the morning before work, and 1-2 times overnight. She states she pumps 3 times during her work day as well. Infant History: Gertrude was delivered at 38 weeks gestation. She is well past her weight of 6-6 and today weighed 12 lb 7 oz. Mom states she has no concerns about babies weight gain at this time. SHe also states baby Haily latches well to the breast with no pain. She mentioned Haily gets distracted while feeding at times but we reviewed that is a normal finding for a 3 month old. Humberto Johansen is alert and content during the visit and started to show hunger cues. Her facial muscles appear symmetrical and also appears to have free movement with his tongue in and out of his mouth. When she is brought to the breast, she roots and tries to grasp at the breast. She was easily able to latch herself tot the breast with little help from mom. Mom states that she breastfeeds humberto Johansen 1-2 times overnight and typically in the morning and after she gets home from work and before bed. Mom states she has 1-2 stoold in a day and 6 or more wet diapers on average. Observations: January works well with her , she latches infant with ease to the breast in an optimal position. Mom stated that she likes to feed in cradle position and it works well for her. Baby Haily opens with a wide gape when offered the breast, and heavy swallows were noted with the feeding. Mom was resized for her correct flange size, and was noted to be wearing a size too small. Once we increased her flange size from a 21 to a 24, January attempted to pump and reported that the pain was decreased. We reviewed continuing to pump at work to protect her milk supply. weight: 6-11 Lowest weight: 6-6 Last weight: 11-11 Plan of Care: January was encouraged to continue at the breast to keep baby practicing and growing in his abilities. Mom is aware she should continue using new size flange for her pump that we discussed to help with the pain. Mom will continue to use her pump and protect her milk supply while she is at work and focus on when she is at home with her baby. We discussed wearable pump options and mom states she will consider adding a new pump to her routine for ease and comfort. Follow up plans: She is aware she can call the team to ask questions or voice concerns, as well as make another follow up appointment anytime. Continue with your next scheduled nurse examiner appointment. Patient was provided with educational handouts, and the correct size flanges for her pump. January will receive a follow up call in 1-2 days time.
== END 2025-02-16 13:13 | disposition home or self-care (01) ==
LOC: ANHOBOP 13:13
PROVIDERS: PCP Internal Medicine; Visit Provider Pediatrics
DX: Z39.1 Encounter for care and examination of lactating mother (principal)
CPT/HCPCS: 99212; G0463